=== PATIENT | female | born 1975 | race Caucasian/White ===

== ENCOUNTER 2018-03-09 18:07 | Emergency (ER) | payer OTHER ==
[2018-03-09] MEDS: ACETAMINOPHEN 325 MG TAB PO (18:36)
[2018-03-09 19:37] LABS: APPEARANCE, URINE CLEAR (CLEAR); BACTERIA, URINE AUTO NEGATIVE (NEGATIVE); BILIRUBIN, URINE AUTO NEGATIVE (NEGATIVE); BLOOD, URINE BLOOD 1+ (NEGATIVE); COLOR, URINE YELLOW (YELLOW); GLUCOSE, URINE (UA) AUTO NEGATIVE (NEGATIVE); KETONE, URINE AUTO NEGATIVE (NEGATIVE); LEUKOCYTE ESTERASE, URINE AUTO NEGATIVE (NEGATIVE); MUCUS, URINE SMALL (NEGATIVE); NITRITE, URINE AUTO NEGATIVE (NEGATIVE); PROTEIN, URINE AUTO NEGATIVE (NEGATIVE); RBC, URINE AUTO 8 /HPF (0-3); SPECIFIC GRAVITY URINE AUTO 1.017 (1.002-1.035); SQUAMOUS EPITHELIAL CELL UR AU 1 /HPF (0-6); WBC, URINE AUTO 1 /HPF (0-3)
== END 2018-03-09 19:46 | disposition home or self-care (01) ==
LOC: M ED 18:07
DX: S20.219A Contusion of unspecified front wall of thorax, initial encounter (principal); S39.012A Strain of muscle, fascia and tendon of lower back, initial encounter; W10.9XXA Fall (on) (from) unspecified stairs and steps, initial encounter; K21.9 Gastro-esophageal reflux disease without esophagitis; Z79.899 Other long term (current) drug therapy
CPT/HCPCS: 71101

== ENCOUNTER → 2018-03-09 | Outpatient (REF) | payer OTHER ==
[2018-03-09 11:49] LABS: ESTIMATED AVERAGE GLUCOSE 114 MG/DL (60-110); HEMOGLOBIN A1c 5.6 %
[2018-03-09 12:32] LABS: CHOLESTEROL LEVEL 283 MG/DL (<200); CHOLESTEROL RISK RATIO 6.738 (<5); HDL CHOLESTEROL 42 MG/DL (>40); LDL CHOLESTEROL 187 MG/DL (<100); NON-HDL-C 241 MG/DL; TOTAL 25(OH) VITAMIN D 18.5 NG/ML (30.0-100.0); TRIGLYCERIDES LEVEL 269 MG/DL (<150)
== END ==
LOC: M SFHCPLAZ 08:40
DX: Z13.1 Encounter for screening for diabetes mellitus (principal); E78.2 Mixed hyperlipidemia; E55.9 Vitamin D deficiency, unspecified
CPT/HCPCS: 83036

== ENCOUNTER → 2018-04-28 | Outpatient (CLI) | payer OTHER ==
[~2018-04-28] MED LIST: CVS20TAB PO; IBUP600T
--- NOTE | 2018-04-29 02:15 | REP ---
Clinical: Acute right wrist pain. Technique: AP, lateral, bilateral oblique views of the right wrist. Comparison: None. Findings: Evidence of prior orthopedic fixation involving the distal radial metadiaphysis. The carpal bones and surrounding adjacent osseous structures as well as a surrounding soft tissues are otherwise normal. Impression: Old trauma and fixation of the distal radius. Otherwise age appropriate normal-appearing right wrist series. Electronically Signed by Bob Lynn MD 04/29/2018 02:06 A
== END ==
LOC: M SMT 09:21
PROVIDERS: ATTEND Physician Assistant Medical
DX: M25.531 Pain in right wrist (principal); Z87.81 Personal history of (healed) traumatic fracture

== ENCOUNTER 2018-06-25 06:06 | Emergency (ER) | payer OTHER ==
[~2018-06-25] VITALS: Ht 149.9 cm; Wt 68.6 kg
[2018-06-25 06:06] VITALS: BP 128/75
--- NOTE | 2018-06-25 09:10 | REP ---
LEFT WRIST COMPLETE: 06/25/2018. Clinical history: Trauma. Findings: No prior studies. The four views show distal radius and ulna, carpal bones and joint spaces all intact. The metacarpals and their articulations with the wrist were unremarkable. The MCP joints were visible and grossly intact. Those portions of phalanges included were unremarkable. No avulsion, foreign body or other acute finding. Impression: 1. Negative left wrist series for fracture or other acute bony finding. Electronically Signed by Alex Tripp MD 06/25/2018 09:34 A
== END 2018-06-25 06:55 | disposition home or self-care (01) ==
LOC: M ED 06:06
DX: S63.502A Unspecified sprain of left wrist, initial encounter (principal); W19.XXXA Unspecified fall, initial encounter; Y92.099 Unspecified place in other non-institutional residence as the place of occurrence of the external cause; Y93.89 Activity, other specified; Y99.9 Unspecified external cause status; Z72.0 Tobacco use; K21.9 Gastro-esophageal reflux disease without esophagitis; Z79.899 Other long term (current) drug therapy

== ENCOUNTER 2018-09-05 11:11 | Outpatient (RCR) | payer OTHER ==
[~2018-09-05 11:11] MED LIST changes: -CVS20TAB PO; +OMEP20TA9 PO
== END 2018-09-06 ==
LOC: M PT 11:11
PROVIDERS: ATTEND Family Medicine
DX: R29.898 Other symptoms and signs involving the musculoskeletal system (principal)

== ENCOUNTER 2018-10-04 09:59 | Outpatient (RCR) | payer OTHER | END 2018-10-07 | LOC: M PT 09:59 | PROVIDERS: ATTEND Family Medicine | DX: R29.898 Other symptoms and signs involving the musculoskeletal system (principal) ==

== ENCOUNTER → 2019-04-03 | Outpatient (REF) | payer OTHER ==
[2019-04-03 11:46] LABS: BASO % 0.5 % (0.0-1.0); EOS # 0.2 10^3/uL (0.0-0.5); EOS % 2.4 % (0.0-3.0); HEMATOCRIT 46.1 % (36.0-47.0); HEMOGLOBIN 14.9 g/dl (12.0-15.5); LYMPH # 2.2 10^3/uL (1.5-5.0); LYMPH % 32.7 % (24.0-44.0); MEAN CORPUSCULAR HEMOGLOBIN 28.3 pg (27.0-33.0); MEAN CORPUSCULAR HGB CONC 32.3 g/dl (32.0-36.5); MEAN CORPUSCULAR VOLUME 87.5 fl (80.0-96.0); MONO # 0.6 10^3/uL (0.0-0.8); MONO % 9.5 % (0.0-5.0); NEUTROPHILS # 3.6 10^3/uL (1.5-8.5); NEUTROPHILS % 54.6 % (36.0-66.0); PLATELET COUNT, AUTOMATED 252 10^3/uL (150-450); RED BLOOD COUNT 5.27 10^6/uL (4.00-5.40); WHITE BLOOD COUNT 6.6 10^3/uL (4.0-10.0)
[2019-04-03 12:02] LABS: ALBUMIN 3.8 GM/DL (3.2-5.2); ALT/SGPT 74 U/L (12-78); BILIRUBIN,TOTAL 0.4 MG/DL (0.2-1.0); BLOOD UREA NITROGEN 9 MG/DL (7-18); CALCIUM LEVEL 9.3 MG/DL (8.5-10.1); CARBON DIOXIDE LEVEL 32 MEQ/L (21-32); CHLORIDE LEVEL 103 MEQ/L (98-107); CHOLESTEROL LEVEL 308 MG/DL (<200); CREATININE FOR GFR 0.84 MG/DL (0.55-1.30); FREE T4 0.82 NG/DL (0.76-1.46); GLOMERULAR FILTRATION RATE > 60.0 (>58); GLUCOSE, FASTING 91 MG/DL (70-100); HDL CHOLESTEROL 40 MG/DL (>40); LDL CHOLESTEROL 226 MG/DL (<100); NON-HDL-C 268 MG/DL; SODIUM LEVEL 140 MEQ/L (136-145); TOTAL 25(OH) VITAMIN D 56.4 NG/ML (30.0-100.0); TOTAL PROTEIN 7.6 GM/DL (6.4-8.2); TRIGLYCERIDES LEVEL 208 MG/DL (<150)
[2019-04-03 12:27] LABS: HEMOGLOBIN A1c 5.9 %
== END ==
LOC: M SFHCPLAZ 08:07
PROVIDERS: ATTEND Nurse Practitioner Family
DX: E78.2 Mixed hyperlipidemia (principal); R73.01 Impaired fasting glucose; E55.9 Vitamin D deficiency, unspecified

== ENCOUNTER → 2019-08-29 | Outpatient (REF) | payer OTHER ==
[2019-08-29 17:54] LABS: APPEARANCE, URINE HAZY (CLEAR); BACTERIA, URINE AUTO NEGATIVE (NEGATIVE); BILIRUBIN, URINE AUTO NEGATIVE (NEGATIVE); BLOOD, URINE BLOOD NEGATIVE (NEGATIVE); CALCIUM OXALATE CRYSTALS SMALL; COLOR, URINE YELLOW (YELLOW); GLUCOSE, URINE (UA) AUTO NEGATIVE (NEGATIVE); KETONE, URINE AUTO NEGATIVE (NEGATIVE); LEUKOCYTE ESTERASE, URINE AUTO NEGATIVE (NEGATIVE); MUCUS, URINE SMALL (NEGATIVE); NITRITE, URINE AUTO NEGATIVE (NEGATIVE); PROTEIN, URINE AUTO NEGATIVE (NEGATIVE); RBC, URINE AUTO 2 /HPF (0-3); SPECIFIC GRAVITY URINE AUTO 1.023 (1.002-1.035); SQUAMOUS EPITHELIAL CELL UR AU 6 /HPF (0-6); UROBILINOGEN, URINE AUTO 0.2 mg/dL (0.0-2.0); WBC, URINE AUTO 1 /HPF (0-3)
== END ==
LOC: M SFHCPLAZ 16:38
PROVIDERS: ATTEND Internal Medicine
DX: R10.9 Unspecified abdominal pain (principal)

== ENCOUNTER → 2019-09-01 | Outpatient (CLI) | payer OTHER ==
--- NOTE | 2019-09-01 11:23 | REP ---
REASON: Right upper quadrant pain. COMPARISON: None. Multiple ultrasonographic images of the liver show the hepatic parenchymal echopattern to be within normal limits. There is no intrahepatic or extrahepatic ductal dilatation. The common bile duct measures 4 mm. Multiple ultrasonographic images of the gallbladder show a slightly thickened gallbladder wall measuring between 2 and 3 mm, but without pericholecystic edema. Multiple mobile echogenic foci are seen within the gallbladder lumen which cast acoustic shadows. The technologist has indicated on the worksheet that there is a sonographic Brown sign. The imaged portion of the pancreas and right kidney are unremarkable. There is no free fluid in the abdomen. IMPRESSION: There is cholelithiasis and a mildly thickened gallbladder wall. Electronically Signed by Gio Abbott DO 09/01/2019 11:38 A
== END ==
LOC: M RAD 07:47
PROVIDERS: ATTEND Internal Medicine
DX: R10.11 Right upper quadrant pain (principal)

== ENCOUNTER 2019-09-10 07:58 | Observation (INO) | payer OTHER ==
[~2019-09-10] VITALS: Ht 149.9 cm; Wt 75.0 kg
[2019-09-10] MEDS ORDERED: VITA50005 PO (08:09)
[2019-09-10] MEDS ORDERED: ALLE180T42 PO (08:09)
[2019-09-10] MEDS ORDERED: ATOR1TAB21 PO (08:09)
[2019-09-10] MEDS ORDERED: NS 1,000 ML IV ONE (08:30)
[2019-09-10] MEDS ORDERED: MORPHINE 4 MG/ML 1ML VIAL/SYRINGE (J2270) IV ONE (08:45)
[2019-09-10] MEDS ORDERED: ONDANSETRON 4MG/2ML VIAL IV ONE (08:45)
[2019-09-10 08:50] LABS: BASO % 0.4 % (0.0-1.0); EOS % 0.3 % (0.0-3.0); HEMATOCRIT 44.5 % (36.0-47.0); HEMOGLOBIN 14.5 g/dl (12.0-15.5); LYMPH # 1.4 10^3/uL (1.5-5.0); LYMPH % 12.4 % (24.0-44.0); MEAN CORPUSCULAR HEMOGLOBIN 28.4 pg (27.0-33.0); MEAN CORPUSCULAR HGB CONC 32.6 g/dl (32.0-36.5); MEAN CORPUSCULAR VOLUME 87.1 fl (80.0-96.0); MONO # 0.5 10^3/uL (0.0-0.8); MONO % 4.1 % (0.0-5.0); NEUTROPHILS # 9.2 10^3/uL (1.5-8.5); NEUTROPHILS % 82.4 % (36.0-66.0); PLATELET COUNT, AUTOMATED 278 10^3/uL (150-450); RED BLOOD COUNT 5.11 10^6/uL (4.00-5.40); WHITE BLOOD COUNT 11.2 10^3/uL (4.0-10.0)
[2019-09-10 09:10] LABS: ALBUMIN 4.1 GM/DL (3.2-5.2); ALT/SGPT 55 U/L (12-78); BILIRUBIN,DIRECT 0.1 MG/DL (0.0-0.2); BILIRUBIN,TOTAL 0.3 MG/DL (0.2-1.0); BLOOD UREA NITROGEN 8 MG/DL (7-18); CALCIUM LEVEL 9.8 MG/DL (8.5-10.1); CARBON DIOXIDE LEVEL 29 MEQ/L (21-32); CHLORIDE LEVEL 106 MEQ/L (98-107); GLOMERULAR FILTRATION RATE > 60.0 (>58); GLUCOSE, FASTING 108 MG/DL (70-100); LIPASE 84 U/L (73-393); POTASSIUM SERUM 3.9 MEQ/L (3.5-5.1); SODIUM LEVEL 143 MEQ/L (136-145); TOTAL PROTEIN 7.8 GM/DL (6.4-8.2)
[2019-09-10 09:12] LABS: APPEARANCE, URINE HAZY (CLEAR); BACTERIA, URINE AUTO NEGATIVE (NEGATIVE); BILIRUBIN, URINE AUTO NEGATIVE (NEGATIVE); BLOOD, URINE BLOOD 1+ (NEGATIVE); COLOR, URINE YELLOW (YELLOW); GLUCOSE, URINE (UA) AUTO NEGATIVE (NEGATIVE); KETONE, URINE AUTO NEGATIVE (NEGATIVE); LEUKOCYTE ESTERASE, URINE AUTO NEGATIVE (NEGATIVE); MUCUS, URINE SMALL (NEGATIVE); NITRITE, URINE AUTO NEGATIVE (NEGATIVE); PROTEIN, URINE AUTO NEGATIVE (NEGATIVE); RBC, URINE AUTO 7 /HPF (0-3); SPECIFIC GRAVITY URINE AUTO 1.025 (1.002-1.035); SQUAMOUS EPITHELIAL CELL UR AU 6 /HPF (0-6); UROBILINOGEN, URINE AUTO 0.2 mg/dL (0.0-2.0); WBC, URINE AUTO 1 /HPF (0-3)
--- NOTE | 2019-09-10 09:27 | REP ---
Clinical: Right upper quadrant pain. Technique: Real time lyon scale ultrasound examination using curved array transducer. Findings: Gallbladder demonstrates mild wall thickening to 4.6 mm along with multiple gallstones and sonographic Brown's sign suggesting early acute cholecystitis. Along the fundus there is a 2.1 x 1.7 x 1.4 cm echogenic area without shadowing suggesting tumefactive sludge and less likely representing mass. No biliary ductal dilatation is appreciated and the common bile duct measures 3.6 mm diameter. Liver and pancreas are normal in contour, size, echogenicity without focal hepatic or pancreatic lesion identified. The right kidney is normal in reniform shape without hydronephrosis and measures 10.5 x 4.3 x 4.9 cm. No ascites. Impression: 1. Gallbladder findings as described above suggest acute cholecystitis and require clinical correlation. Focal area of soft tissue density at the gallbladder fundus is also identified likely represents tumefactive sludge, but mass lesion cannot definitively be excluded. Electronically Signed by Bob Lynn MD 09/10/2019 09:18 A
[2019-09-10] MEDS ORDERED: ONDANSETRON 4MG/2ML VIAL IV PRN (11:30)
[2019-09-10] MEDS ORDERED: NORCO, ANEXSIA 5/325MG TABLET (HYDROcodone/ACETAMINOPHEN) PO PRN ×2 (11:30)
[2019-09-10] MEDS ORDERED: MORPHINE 2 MG/ML 1ML VIAL (J2270) IV PRN ×2 (11:30)
[2019-09-10] MEDS: PANTOPRAZOLE 40MG VIAL (C9113 PER 1) IV SCH (12:52)
[2019-09-10] MEDS: LR 1,000 ML IV SCH ×2 (12:52→20:12)
[2019-09-10] MEDS: KETOROLAC 30 MG/ML 1ML VIAL IV SCH ×2 (12:53→17:55)
[2019-09-10 13:40] VITALS: BP 107/63
[2019-09-10] MEDS: PIPERACILLIN/TAZOBACTAM SOD 3.375 GM in D5W MINI-BAG PLUS 50 ML IV SCH ×3 (14:15→23:54)
[2019-09-10] MEDS: ATORVASTATIN 20 MG TAB PO SCH (15:29)
[2019-09-10 18:00] VITALS: BP 111/74
[2019-09-10] MEDS: OMEPRAZOLE 20 MG CAP PO SCH (20:12)
[2019-09-10 22:00] VITALS: BP 113/73
[2019-09-11] VITALS (7 sets, daily range): BP systolic 114–148; BP diastolic 74–91
[2019-09-11 05:51] LABS: HEMATOCRIT 36.8 % (36.0-47.0); MEAN CORPUSCULAR HEMOGLOBIN 28.8 pg (27.0-33.0); MEAN CORPUSCULAR HGB CONC 32.6 g/dl (32.0-36.5); MEAN CORPUSCULAR VOLUME 88.5 fl (80.0-96.0); PLATELET COUNT, AUTOMATED 214 10^3/uL (150-450); RED BLOOD COUNT 4.16 10^6/uL (4.00-5.40); WHITE BLOOD COUNT 7.7 10^3/uL (4.0-10.0)
[2019-09-11] MEDS: KETOROLAC 30 MG/ML 1ML VIAL IV SCH ×6 (06:00→23:27)
[2019-09-11 06:18] LABS: ALT/SGPT 34 U/L (12-78); BILIRUBIN,TOTAL 0.5 MG/DL (0.2-1.0); BLOOD UREA NITROGEN 9 MG/DL (7-18); CALCIUM LEVEL 8.8 MG/DL (8.5-10.1); CARBON DIOXIDE LEVEL 26 MEQ/L (21-32); CHLORIDE LEVEL 111 MEQ/L (98-107); CREATININE FOR GFR 0.71 MG/DL (0.55-1.30); GLOMERULAR FILTRATION RATE > 60.0 (>58); GLUCOSE, FASTING 90 MG/DL (70-100); POTASSIUM SERUM 3.7 MEQ/L (3.5-5.1); SODIUM LEVEL 143 MEQ/L (136-145); TOTAL PROTEIN 6.1 GM/DL (6.4-8.2)
[2019-09-11] MEDS: PIPERACILLIN/TAZOBACTAM SOD 3.375 GM in D5W MINI-BAG PLUS 50 ML IV SCH ×3 (06:30→21:17)
[2019-09-11] MEDS: LR 1,000 ML IV SCH ×3 (06:31→21:18)
[2019-09-11] MEDS: PANTOPRAZOLE 40MG VIAL (C9113 PER 1) IV SCH (09:25)
[2019-09-11] MEDS: OMEPRAZOLE 20 MG CAP PO SCH ×2 (09:25→21:21)
[2019-09-11] MEDS: ATORVASTATIN 20 MG TAB PO SCH (09:25)
--- NOTE | 2019-09-11 10:20 | HPE ---
DATE OF ADMISSION: 09/10/2019 BRIEF HISTORY OF PRESENT ILLNESS: The patient is a 44-year-old female who has had ongoing problems with symptomatic gallstones for over a month now, had a scheduled office appointment about a week and half ago but unfortunately this was cancelled in Dr. Bright's office because of an emergency operation that at that time rescheduled her office visit for this coming week or two. In any case, last night she had peanut butter in the middle the night and developed acute onset of abdominal pain in the epigastric area radiating to the right upper quadrant. After about an hour or so after eating this peanut butter and jelly sandwich she has presented with an elevated white count of 11.2. Liver function tests (LFTs) were within normal limits. Did not have any acholic stools. No bilirubinuria. She was in to see Dr. Mcdowell about 2 weeks ago after being seen for this abdominal pain and was started on some Keflex for a week's time. She is status post appendectomy, hysterectomy, history of kidney stones, history of chronic low back pain, history of carpal tunnel syndrome, history of nicotine dependence, hyperlipidemia, history of colonic polyps, history of (C) section times three, history of right wrist and arm surgery. Physical exam reveals a 44-year-old female who looks stated age. HEENT is unremarkable. Neck: Supple without with without adenopathy. Lungs are clear to auscultation without crackles, wheezes or rhonchi. Heart is regular without murmur. Abdomen is soft, nontender, nondistended except in the right upper quadrant where she has some guarding and rebound in the right upper quadrant and is Brown's positive. She has a slightly thickened gallbladder wall with gallstones on imaging. IMPRESSION/PLAN: The patient has evidence of cholecystitis. At this time, clinically we will make her nothing by mouth, intravenous (IV) fluids, IV antibiotics, and we will see how she does over the ensuing 12-24 hours. We will see how she is doing in the morning. If she is doing well, options are to be either progress her diet and discharge to home with an outpatient laparoscopic cholecystectomy or to proceed with operative intervention while she is in hospital. We will discuss this with her tomorrow depending on her course over the day.
[2019-09-11] MEDS ORDERED: LIDOCAINE 1% SDV 30ML VIAL As Ordered ONE (17:31)
[2019-09-11] MEDS ORDERED: BUPIVACAINE HCL 0.25% 30ML VIAL As Ordered ONE (17:31)
--- NOTE | 2019-09-11 17:32 | IPNPDOC ---
Text Note Date of Service The patient was seen on 09/11/19. NOTE Patient admitted yesterday for severe RUQ pain from acute cholecystitis, had m mejia some improvement with IV antibiotics. She has been having symptoms for the past 2 weeks or so intermittently and was given keflex as an outpatient. She's afebrile On exam, looks mildly uncomfortable Lungs are clear to auscultation bilaterally without wheezing Regular heart rate and rhythm without murmurs round abdomen, minimally distended, tender over right upper quadrant area with mild guarding, (+) murphys sign Labs reviewed initial wbc of 11.2 down to 7.7 today LFTs normal Impression: acute cholecystitis Patient counseled for robotic assisted laparoscopic cholecystectomy. I reviewed with her the risks and benefits of the procedure including risks of bile duct injury, bile leakage, injury to nearby bowels, blood vessels and risks of general anesthesia and possibility of converting to open surgery. consent obtained. VS,Devaughnbone, I+O VS, Fishbone, I+O Laboratory Tests 09/11/19 05:27 Vital Signs Date Time Temp Pulse Resp B/P (MAP) Pulse Ox O2 Delivery O2 Flow Rate FiO2 09/11/19 14:00 97.0 67 17 128/81 (97) 95 09/10/19 22:00 Room Air I&O- Last 24 Hours up to 6 AM 09/11/19 06:00 Intake Total 1850 ml Balance 1850 ml CAYDEN MCLEOD MD September 11, 2019 17:32
[2019-09-11] MEDS ORDERED: ZOSYN 3.375GM VIAL (J2543) As Ordered ONE (17:43)
[2019-09-11] MEDS ORDERED: propofoL 200 MG/20 ML VIAL As Ordered ONE (18:23)
[2019-09-11] MEDS ORDERED: dexameTHASONE 4 MG/ML 1ML VIAL (J1100 PER 1MG) As Ordered ONE (18:23)
[2019-09-11] MEDS ORDERED: MIDAZOLAM INJ 2MG/2ML VIAL (J2250 PER 1MG) As Ordered ONE (18:23)
[2019-09-11] MEDS ORDERED: LIDOCAINE 2% 100MG/5ML SDV (FOR ANES.) As Ordered ONE (18:23)
[2019-09-11] MEDS ORDERED: ROCURONIUM BROMIDE 50 MG/5 ML VIAL As Ordered ONE (18:23)
[2019-09-11] MEDS ORDERED: ACETAMINOPHEN 1000MG 100ML IV BTL (OFIRMEV) (J0131 PER 10MG) As Ordered ONE (18:23)
[2019-09-11] MEDS ORDERED: fentaNYL 250 MCG/5 ML INJECTION (J3010) As Ordered ONE (18:23)
[2019-09-11] MEDS ORDERED: KETOROLAC 60 MG/2 ML VIAL As Ordered ONE (18:23)
[2019-09-11] MEDS ORDERED: ONDANSETRON 4MG/2ML VIAL As Ordered ONE (18:23)
[2019-09-11] MEDS ORDERED: SUGAMMADEX SODIUM 500 MG/5 ML VIAL (BRIDION) As Ordered ONE (18:33)
[2019-09-11] MEDS: hydrALAZINE 20MG/ML 1ML VIAL (J0360 PER 20MG) IV SCH ×4 (19:55→20:30)
[2019-09-11] MEDS ORDERED: hydrALAZINE 20MG/ML 1ML VIAL (J0360 PER 20MG) As Ordered ONE (19:57)
[2019-09-11] MEDS ORDERED: LR 1,000 ML IV SCH (20:15)
[2019-09-11] MEDS: LABETALOL 100MG/20ML VIAL IV SCH ×5 (20:15→20:35)
[2019-09-11] MEDS ORDERED: oxyCODONE 5MG TAB PO PRN (20:15)
[2019-09-11] MEDS ORDERED: ONDANSETRON 4MG/2ML VIAL IV PRN (20:15)
[2019-09-11] MEDS ORDERED: fentaNYL 100 MCG/2 ML INJECTION (J3010) IV PRN (20:15)
[2019-09-11] MEDS ORDERED: oxyCODONE 5MG TAB As Ordered ONE (20:38)
[2019-09-12] VITALS: BP 128/77
[2019-09-12] MEDS: PIPERACILLIN/TAZOBACTAM SOD 3.375 GM in D5W MINI-BAG PLUS 50 ML IV SCH ×3 (00:59→12:48)
[2019-09-12 01:00] VITALS: BP 135/73
[2019-09-12 02:00] VITALS: BP 115/73
[2019-09-12] MEDS: LR 1,000 ML IV SCH (03:18)
[2019-09-12] MEDS: KETOROLAC 30 MG/ML 1ML VIAL IV SCH ×2 (05:46→12:48)
[2019-09-12 06:00] VITALS: BP 136/87
[2019-09-12 06:26] LABS: HEMATOCRIT 40.9 % (36.0-47.0); HEMOGLOBIN 13.6 g/dl (12.0-15.5); MEAN CORPUSCULAR HEMOGLOBIN 28.6 pg (27.0-33.0); MEAN CORPUSCULAR HGB CONC 33.3 g/dl (32.0-36.5); MEAN CORPUSCULAR VOLUME 85.9 fl (80.0-96.0); PLATELET COUNT, AUTOMATED 262 10^3/uL (150-450); RED BLOOD COUNT 4.76 10^6/uL (4.00-5.40); WHITE BLOOD COUNT 13.3 10^3/uL (4.0-10.0)
[2019-09-12 06:56] LABS: ALBUMIN 3.4 GM/DL (3.2-5.2); ALT/SGPT 40 U/L (12-78); BILIRUBIN,TOTAL 0.4 MG/DL (0.2-1.0); BLOOD UREA NITROGEN 7 MG/DL (7-18); CALCIUM LEVEL 9.2 MG/DL (8.5-10.1); CARBON DIOXIDE LEVEL 26 MEQ/L (21-32); CHLORIDE LEVEL 109 MEQ/L (98-107); CREATININE FOR GFR 0.74 MG/DL (0.55-1.30); GLOMERULAR FILTRATION RATE > 60.0 (>58); GLUCOSE, FASTING 110 MG/DL (70-100); POTASSIUM SERUM 3.9 MEQ/L (3.5-5.1); SODIUM LEVEL 143 MEQ/L (136-145)
[2019-09-12] MEDS: OMEPRAZOLE 20 MG CAP PO SCH (09:18)
[2019-09-12] MEDS: ATORVASTATIN 20 MG TAB PO SCH (09:18)
[2019-09-12 10:00] VITALS: BP 149/85
[2019-09-12 14:00] VITALS: BP 118/75
[2019-09-12] MEDS ORDERED: HYDR-3715 PO (14:33)
--- NOTE | 2019-09-20 08:48 | ROOPDOC ---
[facility] Report Of Operation Report of Operation DATE OF PROCEDURE: 09/20/19 PREPROCEDURE DIAGNOSES: Acute cholecystitis. POSTPROCEDURE DIAGNOSES: Acute cholecystitis. PROCEDURE: Robotic-assisted laparoscopic cholecystectomy with ICG/firefly for cystic duct identification. SURGEON: Cayden Bright MD MANAGER ALLIANCE: ANESTHESIA: Gen. anesthesia. ESTIMATED BLOOD LOSS: Approximately 20 mL. COMPLICATIONS: None. REMARKS: 44-year-old female admitted with severe right upper quadrant pain and leukocytosis of 11.2 and evidence for acute cholecystitis on ultrasound. PROCEDURE NOTE: Distended, chronically thick-walled with acute gallbladder wall edema, initial absence of cystic duct illumination on ICG/firefly with eventual visualization of the cystic duct on lifting up the stones at the gallbladder neck consistent with cystic duct obstruction/acute cholecystitis. DESCRIPTION OF PROCEDURE: .Patient is receiving scheduled doses of Zosyn 3.375 gm IV preoperatively for acute cholecystitis. She was brought to the operating room, laid supine on the table, compression boots placed for DVT prophylaxis. General endotracheal anesthesia started. His abdomen then prepped and draped in usual sterile fashion. Surgical timeout was performed prior to starting surgery. Entry to the abdomen started over to the left side of the umbilicus via a Veress needle insertion. Intra-abdominal placement confirmed with saline drop technique. CO2 insufflation started to pressure 15 mmHg. Using the same incision an 8 mm robotic trocar was placed under direct vision of a 5 mm laparoscope. The area underneath the insertion point was inspected for injury and none was found. Patient was then positioned in a reverse Trendelenburg slightly tilted right side up to allow for better better visualization of the gallbladder. The robotic port sites were placed in its usual position, slight oblique orientation from the left upper quadrant area going towards the right abdomen roughly about 10-12 cm apart. The da Ryan robot tower was then positioned in place and the trochars docked onto the robotic arms. I used a prograspe, forced bipolar grasper connected to bipolar cautery, 8 mm 30 laparoscope, hook cautery connected to monopolar cautery and exchanged this for scissors and clip tire changer aircraft later on. Operative findings: She has slightly enlarged, moderately fatty-replaced liver which is a bit stiff. Her gallbladder is thick with acute gallbladder wall edema consistent with cholecystitis. Initially with ICG there was no gallbladder transillumination of the dye consistent with cholecystitis with manipulation of the gallbladder neck eventually the gallbladder neck and cystic duct was able to fluoresce. There is small amount of serous fluid surrounding the gallbladder. The wall itself does not have any acutely ischemic portions. I initially decompressed gallbladder with a aspirating needle connected to a 60 mm syringe to be able to manipulate the gallbladder better. This yielded a black thick bile. Once the gallbladder was partially decompressed, the fundus of the gallbladder was grasped and the gallbladder was elevated superiorly exposing the neck of the gallbladder. The peritoneum overlying the area was opened up and dissected free both anteriorly and posteriorly to help with retraction of the gallbladder. The hepatocystic triangle was approached and dissected using the hook cautery. I flipped the near infrared imaging of the firefly on-and-off to identify the course of the cystic duct during the dissection of the hepatocystic triangle. The adipose tissue at the cystic plate was thickened. The cystic duct was identified coming off from the neck gallbladder this was circumferentially dissected. The cystic artery was identified in its usual position medially behind a small lymph node of [place]. This was similarly circumferentially dissected off surrounding adipose tissue. We continued posterior dissection p roximally at the next gallbladder until a critical view of safety was achieved whereby only the previously identified duct and artery coursing through the neck the gallbladder. Photodocumentation. At this point, I placed 2 clips at the cystic artery and this was divided in between the clips. 3 clips were placed at the cystic duct with 2 clips at the cystic duct side and this was likewise divided. We then carefully dissected the remaining posterior wall of the gallbladder off the liver bed. Minimal oozing at the liver bed is noted and is easily controlled with Bovie cautery. There was no bile leakage noted. Her gallbladder was removed intact. Firefly was used to visualize for any possible bile leakage and none was found. The Endo Catch bag was placed over the patient's right upper quadrant port site and with dilation of the tract we were able to remove the gallbladder. Using a Donn Pablo device the fascial defect of the port was closed with a 0 Vicryl stitch. The abdomen was then deflated, all ports were removed. Skin incisions were closed with 4-0 Monocryl in subcutaneous fashion covered with Dermabond. Patient tolerated the procedure well. She was promptly awakened, extubated and brought to recovery room in stable condition. CAYDEN BRIGHT MD September 20, 2019 08:48
--- NOTE | 2019-09-20 08:54 | DS.PDOC ---
Discharge Summary General Date of Admission September 10, 2019 at 07:59 Date of Discharge 09/12/2019 Attending Physician: CAYDEN MCLEOD MD Discharge Summary PROCEDURES PERFORMED DURING STAY: Robotic-assisted laparoscopic cholecystectomy. ADMITTING DIAGNOSES: 1. Acute cholecystitis. DISCHARGE DIAGNOSES: 1. Acute cholecystitis. COMPLICATIONS/CHIEF COMPLAINT: Acute Cholecystitis Due To Biliary Calculus. HISTORY OF PRESENT ILLNESS: Patient admitted through the emergency room where she presented with worsening of right upper quadrant pain which has been ongoing for about a month now was found to have mildly elevated white count and evidence for acute cholecystitis on imaging.. HOSPITAL COURSE: Patient was initially seen by Dr. Cormier and later on turned over to care to me. She was supposed to see me in the clinic for her gall stones. She was scheduled for laparoscopic cholecystectomy. She underwent robotic-assisted laparoscopic cholecystectomy at Hospital day #2. She tolerated the procedure well. Intraoperative findings are consistent with acute cholecystitis at this was performed laparoscopically. She was placed on clear liquids and later on advanced to regular diet which he tolerated. She reports improvement of her pain and discomfort. She had some mild decussate ptosis on postop day 1 with her LFTs remained normal. She was subsequently discharged home on as needed hydrocodone for pain.. DISCHARGE MEDICATIONS: Please see below. ALLERGIES: Please see below. PHYSICAL EXAMINATION ON DISCHARGE: VITAL SIGNS: Please see below. GENERAL: Comfortable HEENT: [place] palpebral conjunctiva, anicteric sclerae NECK: Short, supple, no jugular venous distention CARDIOVASCULAR EXAMINATION: Regular heart rate and rhythm without murmurs RESPIRATORY EXAMINATION: Clear breath sounds auscultation bilaterally without wheezing ABDOMINAL EXAMINATION: Mildly obese, rounded, soft. For port sites without much ecchymosis, subcutaneous hematoma or seroma. Minimally tender around the port sites EXTREMITIES: No significant extremity edema SKIN: No jaundice NEUROLOGICAL EXAMINATION: Awake, alert, oriented LABORATORY DATA: Please see below. IMAGING: A gallbladder ultrasound PROGNOSIS: Good ACTIVITY: Light activity 2 weeks. DIET: As tolerated DISCHARGE PLAN: Patient's discharge home on as needed [place] for pain control and [id number] NSAIDs. No antibiotics are needed. DISPOSITION: 01 Home, Self-Care. DISCHARGE INSTRUCTIONS: 1. Follow-up with me as originally scheduled next week. ITEMS TO FOLLOWUP ON ON OUTPATIENT: 1. Pathology results. DISCHARGE CONDITION: Stable. TIME SPENT ON DISCHARGE: Greater than 30 minutes. Discharge Medications Scheduled Atorvastatin Calcium (Atorvastatin Calcium) 20 Mg Tablet, 20 MG PO DAILY, (Reported) Ergocalciferol (Vitamin D2) (Vitamin D2) 50,000 Units Cap, 50,000 UNITS PO QWEEK, (Reported) SUNDAYS Fexofenadine HCl (Allergy Relief) 180 Mg Tablet, 180 MG PO DAILY, (Reported) Omeprazole (Omeprazole) 20 Mg Tab, 20 MG PO BID, (Reported) Scheduled PRN Hydrocodone/Acetaminophen (Hydrocodone-Acetamin 5-325 mg) 1 Each Tablet, 1-2 TAB PO Q6H PRN for MILD/MODERATE PAIN (PS 1-7) Allergies Coded Allergies: No Known Allergies (Unverified , 09/10/19) CAYDEN MCLEOD MD September 20, 2019 08:54
== END 2019-09-12 18:45 | disposition home or self-care (01) ==
LOC: M ED 07:58 → M ED INP 07:59 → ENRESERV 13:25 → M MSPAV 13:40
PROVIDERS: ADMIT Surgery; ATTEND Surgery
DX: K80.13 Calculus of gallbladder with acute and chronic cholecystitis with obstruction (principal); M54.5 Low back pain; G89.29 Other chronic pain; E78.5 Hyperlipidemia, unspecified; F17.200 Nicotine dependence, unspecified, uncomplicated; J30.1 Allergic rhinitis due to pollen; Z79.899 Other long term (current) drug therapy; Z11.59 Encounter for screening for other viral diseases
CPT/HCPCS: 36415; 47562; 76705; 80048; 80053; 80076; 81001; 83690; 85025; 85027; 88304; 96361; 96365; 96366; 96375; 96376; 99284; C9113; J0131; J0360; J1100; J1885; J2250; J2270; J2405; J2543; J3010; U0002

== ENCOUNTER → 2019-09-21 | Outpatient (REF) | payer OTHER ==
[~2019-09-21] MED LIST changes: +ALLE180T42 PO; +ATOR1TAB21 PO; +HYDR-3715 PO; +VITA50005 PO
[2019-09-21 13:15] LABS: ALBUMIN 3.6 GM/DL (3.2-5.2); ALT/SGPT 41 U/L (12-78); BILIRUBIN,TOTAL 0.2 MG/DL (0.2-1.0); BLOOD UREA NITROGEN 9 MG/DL (7-18); C REACTIVE PROTEIN QUANTITATIV 0.92 MG/DL (0.00-0.30); CALCIUM LEVEL 9.1 MG/DL (8.5-10.1); CARBON DIOXIDE LEVEL 29 MEQ/L (21-32); CHLORIDE LEVEL 107 MEQ/L (98-107); CHOLESTEROL LEVEL 185 MG/DL (<200); CHOLESTEROL RISK RATIO 4.204 (<5); CPK CREATINE PHOSPHOKINASE 97 U/L (26-192); CREATININE FOR GFR 0.63 MG/DL (0.55-1.30); GLOMERULAR FILTRATION RATE > 60.0 (>58); GLUCOSE, FASTING 88 MG/DL (70-100); HDL CHOLESTEROL 44 MG/DL (>40); LDL CHOLESTEROL 110 MG/DL (<100); NON-HDL-C 141 MG/DL; POTASSIUM SERUM 3.8 MEQ/L (3.5-5.1); SODIUM LEVEL 142 MEQ/L (136-145); TRIGLYCERIDES LEVEL 154 MG/DL (<150)
[2019-09-21 20:14] LABS: BASO # 0.1 10^3/uL (0.0-0.2); EOS # 0.2 10^3/uL (0.0-0.5); EOS % 2.6 % (0.0-3.0); HEMATOCRIT 41.4 % (36.0-47.0); HEMOGLOBIN 13.6 g/dl (12.0-15.5); LYMPH # 2.9 10^3/uL (1.5-5.0); LYMPH % 31.7 % (24.0-44.0); MEAN CORPUSCULAR HEMOGLOBIN 29.5 pg (27.0-33.0); MEAN CORPUSCULAR HGB CONC 32.9 g/dl (32.0-36.5); MEAN CORPUSCULAR VOLUME 89.8 fl (80.0-96.0); MONO # 0.6 10^3/uL (0.0-0.8); MONO % 6.7 % (0.0-5.0); NEUTROPHILS # 5.3 10^3/uL (1.5-8.5); NEUTROPHILS % 57.8 % (36.0-66.0); PLATELET COUNT, AUTOMATED 283 10^3/uL (150-450); RED BLOOD COUNT 4.61 10^6/uL (4.00-5.40); WHITE BLOOD COUNT 9.2 10^3/uL (4.0-10.0)
== END ==
LOC: M SFHCPLAZ 11:34
PROVIDERS: ATTEND Family Medicine
DX: E78.2 Mixed hyperlipidemia (principal); R73.01 Impaired fasting glucose; R10.11 Right upper quadrant pain

== ENCOUNTER → 2019-09-22 | Outpatient (CLI) | payer OTHER ==
--- NOTE | 2019-09-22 11:42 | REP ---
RIGHT UPPER QUADRANT ULTRASOUND: Real-time sonographic evaluation of right upper quadrant performed. Patient has had cholecystectomy 09/12/2019. There is no intrahepatic or extrahepatic biliary dilatation, common bile duct measuring 6 mm. No superficial abdominal wall abnormality is seen at the site of pain between incision sites. Liver and pancreas are grossly unremarkable. Pancreas is not optimally seen due to overlying bowel gas. Right kidney demonstrates no hydronephrosis with normal size 11.5 cm in length. There is no ascites. IMPRESSION: Essentially negative right upper quadrant ultrasound, status post cholecystectomy. Electronically Signed by Eulalio Marley MD 09/22/2019 12:02 P
== END ==
LOC: M RAD 09:28
PROVIDERS: ATTEND Family Medicine
DX: R10.11 Right upper quadrant pain (principal); Z90.49 Acquired absence of other specified parts of digestive tract

== ENCOUNTER → 2019-11-06 | Outpatient (CLI) | payer OTHER ==
[~2019-11-06] MED LIST changes: +CETI5SOL3 PO; +MONT10TA4 PO
== END ==
LOC: M LABSMTC 09:44
PROVIDERS: ATTEND Anesthesiology
DX: Z01.818 Encounter for other preprocedural examination (principal); Z11.59 Encounter for screening for other viral diseases
CPT/HCPCS: C9803; U0002

== ENCOUNTER 2019-11-08 06:11 | Day surgery (SDC) | payer OTHER ==
[~2019-11-08] VITALS: Ht 149.9 cm; Wt 76.2 kg
[~2019-11-08 06:11] MED LIST changes: +NS 1,000 ML IV ONE
[2019-11-08] MEDS ORDERED: propofoL 200 MG/20 ML VIAL As Ordered ONE (07:05)
[2019-11-08] MEDS ORDERED: LIDOCAINE 2% 100MG/5ML SDV (FOR ANES.) As Ordered ONE (07:05)
--- NOTE | 2019-11-08 08:02 | ROOR ---
Patient Name: Daphnie Barakat Procedure Date: 11/08/2019 7:30 AM Date of : 1975 Age: 44 Room: [facility] Gender: Female Note Status: Finalized Procedure: Colonoscopy Indications: High risk colon cancer surveillance: Personal history of colonic polyps Providers: Juan Daniel Bright MD Referring MD: Jennifer HAHN Requesting Provider: Medicines: Monitored Anesthesia Care Complications: No immediate complications. Procedure: Pre-Anesthesia Assessment: - Prior to the procedure, a History and Physical was performed, and patient medications and allergies were reviewed. The patient is competent. The risks and benefits of the procedure and the sedation options and risks were discussed with the patient. All questions were answered and informed consent was obtained. Patient identification and proposed procedure were verified by the physician, the nurse and the anesthesiologist in the endoscopy suite. Mental Status Examination: alert and oriented. Airway Examination: normal oropharyngeal airway and neck mobility. Respiratory Examination: clear to auscultation. CV Examination: normal. Prophylactic Antibiotics: The patient does not require prophylactic antibiotics. Prior Anticoagulants: The patient has taken no previous anticoagulant or antiplatelet agents. ASA Grade Assessment: II - A patient with mild systemic disease. After reviewing the risks and benefits, the patient was deemed in satisfactory condition to undergo the procedure. The anesthesia plan was to use monitored anesthesia care (MAC). Immediately prior to administration of medications, the patient was re-assessed for adequacy to receive sedatives. The heart rate, respiratory rate, oxygen saturations, blood pressure, adequacy of pulmonary ventilation, and response to care were monitored throughout the procedure. The physical status of the patient was re-assessed after the procedure. The Colonoscope was introduced through the anus and advanced to the cecum, identified by appendiceal orifice and ileocecal valve. The colonoscopy was performed without difficulty. The patient tolerated the procedure well. The quality of the bowel preparation was good. Findings: Skin tags were found on perianal exam. A few small-mouthed diverticula were found in the sigmoid colon. Two flat polyps were found in the transverse colon. The polyps were diminutive in size. These polyps were removed with a cold biopsy forceps. Resection and retrieval were complete. For hemostasis, one hemostatic clip was successfully placed (MR conditional). There was no bleeding at the end of the procedure. No additional abnormalities were found on retroflexion. Impression: - Perianal skin tags found on perianal exam. - Diverticulosis in the sigmoid colon. - Two diminutive polyps in the transverse colon, removed with a cold biopsy forceps. Resected and retrieved. Clip (MR conditional) was placed. Recommendation: - Discharge patient to home (ambulatory). - Repeat colonoscopy in 10 years for surveillance based on pathology results. Juan Daniel Bright MD Juan Daniel Bright MD 11/08/2019 8:01:48 AM Electronically signed by Juan Daniel Bright MD Number of Addenda: 0 Note Initiated On: 11/08/2019 7:30 AM Estimated Blood Loss: Estimated blood loss was minimal.
[2019-11-08 08:30] VITALS: BP 132/77
== END 2019-11-08 09:20 | disposition home or self-care (01) ==
LOC: M OPP 06:11
PROVIDERS: ATTEND Surgery
DX: Z12.11 Encounter for screening for malignant neoplasm of colon (principal); Z86.010 Personal history of colon polyps; Z80.0 Family history of malignant neoplasm of digestive organs; D12.3 Benign neoplasm of transverse colon; K57.30 Diverticulosis of large intestine without perforation or abscess without bleeding; K80.00 Calculus of gallbladder with acute cholecystitis without obstruction; F17.210 Nicotine dependence, cigarettes, uncomplicated; Z79.899 Other long term (current) drug therapy

== ENCOUNTER 2019-11-27 15:56 | Emergency (ER) | payer OTHER ==
[~2019-11-27] VITALS: Ht 149.9 cm; Wt 77.4 kg
[~2019-11-27 15:56] MED LIST changes: -NS 1,000 ML IV ONE
[2019-11-27 17:18] LABS: BASO % 0.4 % (0.0-1.0); EOS # 0.1 10^3/uL (0.0-0.5); EOS % 1.4 % (0.0-3.0); HEMOGLOBIN 13.6 g/dl (12.0-15.5); LYMPH # 2.9 10^3/uL (1.5-5.0); LYMPH % 32.6 % (24.0-44.0); MEAN CORPUSCULAR HEMOGLOBIN 28.9 pg (27.0-33.0); MEAN CORPUSCULAR HGB CONC 32.4 g/dl (32.0-36.5); MEAN CORPUSCULAR VOLUME 89.4 fl (80.0-96.0); MONO # 0.6 10^3/uL (0.0-0.8); MONO % 6.1 % (0.0-5.0); NEUTROPHILS # 5.3 10^3/uL (1.5-8.5); NEUTROPHILS % 59.1 % (36.0-66.0); PLATELET COUNT, AUTOMATED 266 10^3/uL (150-450)
[2019-11-27 17:41] LABS: C REACTIVE PROTEIN QUANTITATIV 0.7 MG/DL (0.00-0.30); MAGNESIUM LEVEL 2.2 MG/DL (1.8-2.4)
[2019-11-27 17:45] LABS: ERYTHROCYTE SEDIMENTATION RATE 6 mm/hr (0-20)
--- NOTE | 2019-11-27 19:11 | REPVR ---
PROCEDURE INFORMATION: Exam: US Duplex Right Lower Extremity Veins, Limited Exam date and time: 11/27/2019 6:17 PM Age: 44 years old Clinical indication: Pain; Leg, upper; Right; Additional info: Pain to calf R/O dvt TECHNIQUE: Imaging protocol: Real-time Duplex ultrasound of the Right Lower Extremity with 2-D lyon scale, color Doppler flow and spectral waveform analysis with image documentation. Limited exam was focused on the right lower extremity veins. COMPARISON: No relevant prior studies available. FINDINGS: Right deep veins: Unremarkable. The common femoral, femoral and popliteal veins are patent without thrombus. Normal Doppler waveforms. Normal compressibility and/or augmentation response. Right superficial veins: Unremarkable. Saphenofemoral junction is patent without thrombus. Soft tissues: Unremarkable. IMPRESSION: No sonographic evidence of deep vein thrombosis. Electronically signed by: Juan C Raman On 11/27/2019 19:10:48 PM
[2019-11-27 19:44] VITALS: BP 127/83
== END 2019-11-27 19:52 | disposition home or self-care (01) ==
LOC: M ED 15:56
DX: R25.2 Cramp and spasm (principal); F17.210 Nicotine dependence, cigarettes, uncomplicated; Z79.899 Other long term (current) drug therapy

== ENCOUNTER → 2020-01-12 | Outpatient (CLI) | payer OTHER ==
[~2020-01-12] MED LIST changes: +IBUP-1022 PO
--- NOTE | 2020-01-12 16:09 | REPVR ---
PROCEDURE INFORMATION: Exam: XR Left Calcaneus Exam date and time: 01/12/2020 3:56 PM Age: 45 years old Clinical indication: Pain; Heel; Left; Additional info: Foot/heal pain TECHNIQUE: Imaging protocol: XR of the Left calcaneus. Views: 2 or more views. COMPARISON: No relevant prior studies available. FINDINGS: Bones/joints: Os trigonum is present. No acute fracture or dislocation. Soft tissues: Unremarkable. IMPRESSION: 1. No acute findings. 2. Os trigonum is present. Electronically signed by: Salvador Allred On 01/12/2020 16:08:44 PM
--- NOTE | 2020-01-12 16:11 | REPVR ---
PROCEDURE INFORMATION: Exam: XR Left Foot Complete Exam date and time: 01/12/2020 3:56 PM Age: 45 years old Clinical indication: Pain; Ankle; Left; Additional info: Foot/heal pain TECHNIQUE: Imaging protocol: XR Left foot. Views: 3 or more views. COMPARISON: No relevant prior studies available. FINDINGS: Bones/joints: Approximately 1.1 cm exophytic osseous lesion projecting off the dorsal aspect of the distal phalanx of the 1st digit. No acute fracture or dislocation. Os trigonum is present. Soft tissues: Unremarkable. IMPRESSION: 1. No acute osseous lesion or fracture. 2. Os trigonum is present. 3. Approximately 1.1 cm exophytic osseous lesion projecting off the dorsal aspect of the distal phalanx of the 1st digit, possible exostosis. Recommend further evaluation with foot CT. Electronically signed by: Salvador Allred On 01/12/2020 16:11:32 PM
== END ==
LOC: M RAD 15:26
PROVIDERS: ATTEND Physician Assistant
DX: M25.572 Pain in left ankle and joints of left foot (principal)

== ENCOUNTER → 2020-02-21 | Outpatient (CLI) | payer OTHER ==
[2020-02-21 10:47] LABS: HEMOGLOBIN 13.9 g/dl (12.0-15.5); MEAN CORPUSCULAR HEMOGLOBIN 28.7 pg (27.0-33.0); MEAN CORPUSCULAR HGB CONC 32.3 g/dl (32.0-36.5); MEAN CORPUSCULAR VOLUME 88.7 fl (80.0-96.0); PLATELET COUNT, AUTOMATED 281 10^3/uL (150-450); RED BLOOD COUNT 4.85 10^6/uL (4.00-5.40); WHITE BLOOD COUNT 9.8 10^3/uL (4.0-10.0)
[2020-02-21 11:14] LABS: ALBUMIN 3.6 GM/DL (3.2-5.2); ALT/SGPT 38 U/L (12-78); BILIRUBIN,DIRECT < 0.1 MG/DL (0.0-0.2); BILIRUBIN,TOTAL 0.3 MG/DL (0.2-1.0); BLOOD UREA NITROGEN 13 MG/DL (7-18); CALCIUM LEVEL 9.3 MG/DL (8.5-10.1); CARBON DIOXIDE LEVEL 27 MEQ/L (21-32); CHLORIDE LEVEL 106 MEQ/L (98-107); CREATININE FOR GFR 0.77 MG/DL (0.55-1.30); GLOMERULAR FILTRATION RATE > 60.0 (>58); GLUCOSE, FASTING 90 MG/DL (70-100); PHOSPHORUS LEVEL 3.5 MG/DL (2.5-4.9); POTASSIUM SERUM 3.8 MEQ/L (3.5-5.1); SODIUM LEVEL 140 MEQ/L (136-145); TOTAL PROTEIN 7.2 GM/DL (6.4-8.2)
== END ==
LOC: M LAB 09:30
PROVIDERS: ATTEND Podiatrist Foot & Ankle Surgery
DX: B35.1 Tinea unguium (principal); Z79.899 Other long term (current) drug therapy

== ENCOUNTER 2020-02-24 10:33 | Emergency (ER) | payer OTHER ==
[~2020-02-24] VITALS: Ht 149.9 cm; Wt 77.9 kg
[~2020-02-24 10:33] MED LIST changes: -IBUP-1022 PO
[2020-02-24] MEDS ORDERED: KETOROLAC 30 MG/ML 1ML VIAL IV ONE (11:15)
[2020-02-24] MEDS ORDERED: NS 1,000 ML IV ONE (11:15)
[2020-02-24 11:24] LABS: BASO # 0.1 10^3/uL (0.0-0.2); BASO % 0.5 % (0.0-1.0); EOS # 0.1 10^3/uL (0.0-0.5); EOS % 1.2 % (0.0-3.0); HEMATOCRIT 43.1 % (36.0-47.0); LYMPH # 2.7 10^3/uL (1.5-5.0); LYMPH % 27.6 % (24.0-44.0); MEAN CORPUSCULAR HEMOGLOBIN 28.3 pg (27.0-33.0); MEAN CORPUSCULAR HGB CONC 32.5 g/dl (32.0-36.5); MEAN CORPUSCULAR VOLUME 87.2 fl (80.0-96.0); MONO # 0.5 10^3/uL (0.0-0.8); MONO % 5.6 % (0.0-5.0); NEUTROPHILS # 6.3 10^3/uL (1.5-8.5); NEUTROPHILS % 64.9 % (36.0-66.0); PLATELET COUNT, AUTOMATED 284 10^3/uL (150-450); RED BLOOD COUNT 4.94 10^6/uL (4.00-5.40); WHITE BLOOD COUNT 9.7 10^3/uL (4.0-10.0)
[2020-02-24] MEDS ORDERED: ISOVUE-370 76% 100ML VIAL As Ordered ONE (11:44)
[2020-02-24 11:57] LABS: ALBUMIN 3.9 GM/DL (3.2-5.2); ALT/SGPT 36 U/L (12-78); BILIRUBIN,DIRECT < 0.1 MG/DL (0.0-0.2); BILIRUBIN,TOTAL 0.4 MG/DL (0.2-1.0); LIPASE 119 U/L (73-393); TOTAL PROTEIN 7.5 GM/DL (6.4-8.2)
--- NOTE | 2020-02-24 12:36 | REPVR ---
PROCEDURE INFORMATION: Exam: CT Abdomen And Pelvis With Contrast Exam date and time: 02/24/2020 11:54 AM Age: 45 years old Clinical indication: Abdominal pain; Additional info: Rlq pain R/O infectious process TECHNIQUE: Imaging protocol: Computed tomography of the abdomen and pelvis with intravenous contrast. Radiation optimization: All CT scans at this facility use at least one of these dose optimization techniques: automated exposure control; mA and/or kV adjustment per patient size (includes targeted exams where dose is matched to clinical indication); or iterative reconstruction. Contrast material: ISOVUE 370; Contrast volume: 100 ml; Contrast route: INTRAVENOUS (IV); COMPARISON: Abdomen, limited US 09/22/2019 9:49 AM FINDINGS: Lungs: The visualized lung bases demonstrate minor dependent atelectasis. Liver: The liver is fatty in density. It appears otherwise unremarkable. Gallbladder and bile ducts: The gallbladder is again absent. Pancreas: Normal. No ductal dilation. Spleen: Normal. No splenomegaly. Adrenals: Normal. No mass. Kidneys and ureters: Normal. No hydronephrosis. Stomach and bowel: The unopacified small bowel is not significantly distended to suggest obstruction. Medial to the proximal ascending colon is a fatty density focus measuring up to 1.8 cm with faint haziness of the surrounding fat (images 202:38, 201:83). This is suspicious for epiploic appendagitis. The large bowel is otherwise grossly unremarkable in appearance. Appendix: The appendix is not identified, but there are no inflammatory changes in its expected region. Intraperitoneal space: No free air or significant free fluid. Vasculature: The abdominal aorta is nonaneurysmal. Atherosclerotic vascular calcifications are noted. Lymph nodes: Unremarkable. No enlarged lymph nodes. Urinary bladder: Unremarkable as visualized. Reproductive: There has been hysterectomy. No gross adnexal abnormality is apparent, but ultrasound would be more appropriate in this regard. Bones/joints: Degenerative changes involve the spine and hips. Soft tissues: A very small fat containing umbilical hernia is present. IMPRESSION: 1. Suspect epiploic appendagitis along the proximal ascending colon as above. 2. Appendix not identified, without secondary signs of appendicitis. 3. Fatty liver. 4. Very small fat containing umbilical hernia. 5. Prior cholecystectomy and hysterectomy. Electronically signed by: Juan C Sosa On 02/24/2020 12:36:22 PM
[2020-02-24] MEDS ORDERED: IBUP-1022 PO (12:59)
[2020-02-24 13:14] VITALS: BP 135/87
--- NOTE | 2020-02-26 10:52 | ED PDOC ---
Post-Departure Follow-Up mariana moses faxed formal report of ct abd/p for fu Clint Cardona MD Feb 26, 2020 10:52
== END 2020-02-24 13:19 | disposition home or self-care (01) ==
LOC: M ED 10:33
DX: K65.9 Peritonitis, unspecified (principal); K58.8 Other irritable bowel syndrome; K76.0 Fatty (change of) liver, not elsewhere classified; Z90.710 Acquired absence of both cervix and uterus; Z90.49 Acquired absence of other specified parts of digestive tract; F17.200 Nicotine dependence, unspecified, uncomplicated; J30.2 Other seasonal allergic rhinitis
CPT/HCPCS: 74177; 80047; 80076; 81001; 83690; 85025; 96361; 96374; 99284; J1885; Q9967

== ENCOUNTER → 2020-06-28 | Outpatient (CLI) | payer SELFPAY ==
[~2020-06-28] MED LIST changes: +IBUP-1022 PO; +MONT10TA10 PO; -MONT10TA4 PO
== END ==
LOC: M LABSMTC 09:43
PROVIDERS: ATTEND Pediatrics
DX: Z20.822 Contact with and (suspected) exposure to COVID-19 (principal)

== ENCOUNTER 2020-08-06 11:51 | Outpatient (RCR) | payer OTHER | END 2020-08-07 | LOC: M OT 11:51 | DX: M25.532 Pain in left wrist (principal) ==

== ENCOUNTER 2020-08-18 13:57 | Emergency (ER) | payer OTHER ==
[~2020-08-18] VITALS: Ht 149.9 cm; Wt 79.2 kg
[2020-08-18 13:58] VITALS: BP 136/95
[2020-08-18] MEDS ORDERED: TERB250T12 (14:09)
--- NOTE | 2020-08-18 15:53 | REP ---
INDICATION: trauma to leg COMPARISON: None. TECHNIQUE: AP and lateral left lower leg. FINDINGS: There is no evidence of acute fracture, dislocation, or intrinsic bone disease. IMPRESSION: No fracture or dislocation. <Electronically signed by Eulalio Marley > 08/18/20 [id number]
== END 2020-08-18 16:13 | disposition home or self-care (01) ==
LOC: M ED 13:57
DX: S80.12XA Contusion of left lower leg, initial encounter (principal); X58.XXXA Exposure to other specified factors, initial encounter; Y92.512 Supermarket, store or market as the place of occurrence of the external cause; Y93.89 Activity, other specified; Y99.9 Unspecified external cause status; K21.9 Gastro-esophageal reflux disease without esophagitis; M54.9 Dorsalgia, unspecified; R10.31 Right lower quadrant pain; J30.2 Other seasonal allergic rhinitis; F17.200 Nicotine dependence, unspecified, uncomplicated; Z79.899 Other long term (current) drug therapy

== ENCOUNTER 2020-08-27 09:14 | Outpatient (RCR) | payer OTHER ==
[~2020-08-27 09:14] MED LIST changes: +TERB250T12
== END 2020-08-27 11:00 | disposition home or self-care (01) ==
LOC: M OT 09:14
DX: M25.532 Pain in left wrist (principal)

== ENCOUNTER 2020-09-05 14:31 | Outpatient (RCR) | payer OTHER | END 2020-09-06 | LOC: M PT 14:31 | PROVIDERS: ATTEND Physician Assistant | DX: M65.272 Calcific tendinitis, left ankle and foot (principal) ==

== ENCOUNTER 2020-09-27 08:47 | Outpatient (RCR) | payer OTHER ==
[~2020-09-27 08:47] MED LIST changes: +OMEP20TA2 PO; -OMEP20TA9 PO
== END 2020-10-07 ==
LOC: M PT 08:47
PROVIDERS: ATTEND Physician Assistant
DX: M65.272 Calcific tendinitis, left ankle and foot (principal)

== ENCOUNTER 2020-09-30 21:06 | Emergency (ER) | payer OTHER ==
[~2020-09-30] VITALS: Ht 149.9 cm; Wt 80.3 kg
[2020-09-30] MEDS ORDERED: ACETAMINOPHEN 500 MG TAB PO ONE (23:25)
--- NOTE | 2020-10-01 00:26 | REPVR ---
PROCEDURE INFORMATION: Exam: CT Head Without Contrast Exam date and time: 09/30/2020 11:18 PM Age: 45 years old Clinical indication: Other: Ear pain; Additional info: Headache, dizziness, R ear pain TECHNIQUE: Imaging protocol: Computed tomography of the head without contrast. Radiation optimization: All CT scans at this facility use at least one of these dose optimization techniques: automated exposure control; mA and/or kV adjustment per patient size (includes targeted exams where dose is matched to clinical indication); or iterative reconstruction. COMPARISON: No relevant prior studies available. FINDINGS: Brain: Normal. No hemorrhage. Unremarkable white matter. No mass effect. Cerebral ventricles: No ventriculomegaly. Bones/joints: Unremarkable. No acute fracture. Paranasal sinuses: Visualized sinuses are unremarkable. No fluid levels. Mastoid air cells: Visualized mastoid air cells are well aerated. Soft tissues: Unremarkable. IMPRESSION: No acute intracranial abnormality. Electronically signed by: Steven Hayes On 10/01/2020 00:25:31 AM
--- NOTE | 2020-10-01 00:46 | REPVR ---
PROCEDURE INFORMATION: Exam: CT Abdomen And Pelvis Without Contrast Exam date and time: 09/30/2020 11:18 PM Age: 45 years old Clinical indication: Abdominal pain; Flank; Right; Additional info: R flank pain, HX of kidney stones TECHNIQUE: Imaging protocol: Computed tomography of the abdomen and pelvis without contrast. Radiation optimization: All CT scans at this facility use at least one of these dose optimization techniques: automated exposure control; mA and/or kV adjustment per patient size (includes targeted exams where dose is matched to clinical indication); or iterative reconstruction. COMPARISON: CT ABD/PEL W/IV CONTRAST ONLY 02/24/2020 11:43 AM FINDINGS: Lungs: Linear atelectasis or scarring at the right base. Liver: Mild hepatomegaly. Gallbladder and bile ducts: Status post cholecystectomy. Pancreas: Normal. No ductal dilation. Spleen: Normal. No splenomegaly. Adrenal glands: Normal. No mass. Kidneys and ureters: Normal. No hydronephrosis. Stomach and bowel: Unremarkable. No obstruction. No mucosal thickening. Appendix: No evidence of appendicitis. Intraperitoneal space: Unremarkable. No free air. No significant fluid collection. Vasculature: Atherosclerotic disease of the abdominal aorta. Lymph nodes: Unremarkable. No enlarged lymph nodes. Urinary bladder: Unremarkable as visualized. Reproductive: Status post hysterectomy. Bones/joints: Mild multilevel degenerative disease of the lumbar spine. Stable appearance of a small limbus vertebra along the anterior superior endplate of L5. Soft tissues: Fat containing left flank spigelian hernia. Small fat containing umbilical hernia. IMPRESSION: No hydronephrosis or nephrolithiasis bilaterally. Mild hepatomegaly. Electronically signed by: Ilya Duron On 10/01/2020 00:46:06 AM
[2020-10-01 01:06] VITALS: BP 123/90
== END 2020-10-01 01:09 | disposition home or self-care (01) ==
LOC: M ED 21:06
DX: H92.01 Otalgia, right ear (principal); R51.9 Headache, unspecified; R10.9 Unspecified abdominal pain; K21.9 Gastro-esophageal reflux disease without esophagitis; K58.9 Irritable bowel syndrome, unspecified; J30.2 Other seasonal allergic rhinitis; Z79.899 Other long term (current) drug therapy; F17.210 Nicotine dependence, cigarettes, uncomplicated

== ENCOUNTER → 2021-03-21 | Outpatient (CLI) | payer OTHER ==
[~2021-03-21] MED LIST changes: +ERGO500029 PO; -TERB250T12; +TERB250T91; -VITA50005 PO
== END ==
LOC: M LABSMTC 12:00
PROVIDERS: ATTEND Pediatrics
DX: Z20.822 Contact with and (suspected) exposure to COVID-19 (principal)

== ENCOUNTER → 2021-06-17 | Outpatient (REF) ==
[~2021-06-17] MED LIST changes: -MONT10TA10 PO; +MONT10TA97 PO
== END ==
LOC: M PLAIMG 14:46
PROVIDERS: ATTEND Internal Medicine
DX: G56.01 Carpal tunnel syndrome, right upper limb (principal); M54.9 Dorsalgia, unspecified; M47.892 Other spondylosis, cervical region

== ENCOUNTER → 2021-09-16 | Outpatient (CLI) | payer OTHER ==
[2021-09-16 10:40] LABS: BASO % 0.4 % (0.0-1.0); EOS # 0.1 10^3/uL (0.0-0.5); EOS % 1.5 % (0.0-3.0); HEMATOCRIT 42.6 % (36.0-47.0); HEMOGLOBIN 13.9 g/dl (12.0-15.5); LYMPH # 2.7 10^3/uL (1.5-5.0); LYMPH % 33.6 % (24.0-44.0); MEAN CORPUSCULAR HEMOGLOBIN 28.2 pg (27.0-33.0); MEAN CORPUSCULAR HGB CONC 32.6 g/dl (32.0-36.5); MEAN CORPUSCULAR VOLUME 86.4 fl (80.0-96.0); MONO # 0.5 10^3/uL (0.0-0.8); MONO % 6.5 % (2.0-8.0); NEUTROPHILS # 4.7 10^3/uL (1.5-8.5); NEUTROPHILS % 57.8 % (36.0-66.0); PLATELET COUNT, AUTOMATED 276 10^3/uL (150-450); RED BLOOD COUNT 4.93 10^6/uL (4.00-5.40); WHITE BLOOD COUNT 8.1 10^3/uL (4.0-10.0)
[2021-09-16 10:58] LABS: HEMOGLOBIN A1c 5.5 %
[2021-09-16 11:06] LABS: BLOOD UREA NITROGEN 9 MG/DL (7-18); CALCIUM LEVEL 9.6 MG/DL (8.5-10.1); CARBON DIOXIDE LEVEL 28 MEQ/L (21-32); CHLORIDE LEVEL 108 MEQ/L (98-107); CHOLESTEROL LEVEL 302 MG/DL (<200); CHOLESTEROL RISK RATIO 7.743 (<5); GLOMERULAR FILTRATION RATE > 60.0 (>58); GLUCOSE, FASTING 85 MG/DL (70-100); HDL CHOLESTEROL 39 MG/DL (>40); LDL CHOLESTEROL 205 MG/DL (<100); NON-HDL-C 263 MG/DL; POTASSIUM SERUM 3.8 MEQ/L (3.5-5.1); SODIUM LEVEL 141 MEQ/L (136-145); TRIGLYCERIDES LEVEL 290 MG/DL (<150)
[2021-09-16 11:14] LABS: TOTAL 25(OH) VITAMIN D 21.1 NG/ML (30.0-100.0)
== END ==
LOC: M PLALAB 09:01
PROVIDERS: ATTEND Family Medicine
DX: E78.2 Mixed hyperlipidemia (principal); R73.01 Impaired fasting glucose; E55.9 Vitamin D deficiency, unspecified; K21.9 Gastro-esophageal reflux disease without esophagitis

== ENCOUNTER → 2021-12-16 | Outpatient (CLI) | payer OTHER | LOC: M PLAIMG 14:52 | PROVIDERS: ATTEND Orthopaedic Surgery | DX: M47.892 Other spondylosis, cervical region (principal); M50.222 Other cervical disc displacement at C5-C6 level; M50.223 Other cervical disc displacement at C6-C7 level; M46.02 Spinal enthesopathy, cervical region ==

== ENCOUNTER → 2022-01-27 | Outpatient (CLI) | payer OTHER ==
[2022-01-27 14:20] LABS: ALBUMIN 3.9 GM/DL (3.2-5.2); ALT/SGPT 29 U/L (12-78); BILIRUBIN,TOTAL 0.2 MG/DL (0.2-1.0); BLOOD UREA NITROGEN 15 MG/DL (7-18); CALCIUM LEVEL 9.9 MG/DL (8.5-10.1); CARBON DIOXIDE LEVEL 28 MEQ/L (21-32); CHLORIDE LEVEL 108 MEQ/L (98-107); CHOLESTEROL LEVEL 214 MG/DL (<200); CHOLESTEROL RISK RATIO 5.095 (<5); CREATININE FOR GFR 0.74 MG/DL (0.55-1.30); GLOMERULAR FILTRATION RATE > 60.0 (>58); GLUCOSE, FASTING 92 MG/DL (70-100); HDL CHOLESTEROL 42 MG/DL (>40); NON-HDL-C 172 MG/DL; SODIUM LEVEL 140 MEQ/L (136-145); TOTAL PROTEIN 7.3 GM/DL (6.4-8.2); TRIGLYCERIDES LEVEL 421 MG/DL (<150)
== END ==
LOC: M PLALAB 09:21
PROVIDERS: ATTEND Physician Assistant
DX: E78.2 Mixed hyperlipidemia (principal)

== ENCOUNTER → 2022-06-09 | Outpatient (RCR) | payer OTHER | LOC: M PT 05-27 07:58 | PROVIDERS: ATTEND Physician Assistant | DX: S93.402D Sprain of unspecified ligament of left ankle, subsequent encounter (principal) ==

== ENCOUNTER 2022-06-15 14:05 | Outpatient (RCR) | payer OTHER | END 2022-07-07 | LOC: M PT 14:05 | PROVIDERS: ATTEND Physician Assistant | DX: S93.402D Sprain of unspecified ligament of left ankle, subsequent encounter (principal) ==

== ENCOUNTER 2023-02-24 07:01 | Emergency (ER) | payer OTHER ==
[~2023-02-24] VITALS: Ht 149.9 cm; Wt 75.3 kg
[2023-02-24] MEDS ORDERED: ERGO500029 (07:09)
[2023-02-24] MEDS ORDERED: OMEP-173 (07:09)
[2023-02-24] MEDS ORDERED: IBUP-1720 (07:09)
[2023-02-24] MEDS ORDERED: ATOR1TAB21 (07:09)
[2023-02-24] MEDS ORDERED: ACET-683 PO (07:10)
[2023-02-24 07:44] LABS: HEMATOCRIT 43.5 % (36.0-47.0); HEMOGLOBIN 14.6 g/dl (12.0-15.5); MEAN CORPUSCULAR HEMOGLOBIN 28.9 pg (27.0-33.0); MEAN CORPUSCULAR HGB CONC 33.6 g/dl (32.0-36.5); PLATELET COUNT, AUTOMATED 279 10^3/uL (150-450); RED BLOOD COUNT 5.06 10^6/uL (4.00-5.40); WHITE BLOOD COUNT 11.4 10^3/uL (4.0-10.0)
[2023-02-24 08:03] LABS: BLOOD UREA NITROGEN 13 MG/DL (9-23); CALCIUM LEVEL 9.7 MG/DL (8.5-10.1); CARBON DIOXIDE LEVEL 29 MMOL/L (20-31); CHLORIDE LEVEL 106 MMOL/L (98-107); CREATININE FOR GFR 0.77 MG/DL (0.55-1.30); GLOMERULAR FILTRATION RATE > 60.0 (>58); GLUCOSE, FASTING 103 MG/DL (60-100); POTASSIUM SERUM 3.4 MMOL/L (3.5-5.1); SODIUM LEVEL 143 MMOL/L (136-145)
[2023-02-24] MEDS ORDERED: ACETAMINOPHEN 500 MG TAB PO ONE (08:40)
[2023-02-24] MEDS ORDERED: LIDOCAINE 5% (LIDODERM) PATCH TD ONE (08:40)
[2023-02-24] MEDS ORDERED: KETOROLAC 30 MG/ML 1ML VIAL IV ONE (08:40)
[2023-02-24 08:57] LABS: LIPASE 36 U/L (12-53)
[2023-02-24 09:00] LABS: ALBUMIN 4.1 G/DL (3.2-5.2); ALKALINE PHOSPHATASE 70 U/L (46-116); ALT/SGPT 29 U/L (7.0-40); AST/SGOT 22 U/L (<34); BILIRUBIN,DIRECT 0.2 MG/DL (<0.4); BILIRUBIN,TOTAL 0.6 MG/DL (0.3-1.2); TOTAL PROTEIN 7.4 G/DL (5.7-8.2)
[2023-02-24] MEDS ORDERED: diazePAM 10MG/2ML SYRINGE IV ONE (09:55)
[2023-02-24] MEDS ORDERED: LIDO5DIS41 TD (10:27)
[2023-02-24 11:04] VITALS: BP 133/83; TEMP 97.5; O2SAT 98
== END 2023-02-24 11:05 | disposition home or self-care (01) ==
LOC: M ED 07:01
DX: M54.50 Low back pain, unspecified (principal); E78.5 Hyperlipidemia, unspecified; F17.200 Nicotine dependence, unspecified, uncomplicated; K58.9 Irritable bowel syndrome, unspecified; Z87.442 Personal history of urinary calculi; Z79.1 Long term (current) use of non-steroidal anti-inflammatories (NSAID); Z79.02 Long term (current) use of antithrombotics/antiplatelets; Z79.899 Other long term (current) drug therapy
CPT/HCPCS: 74176; 80048; 80076; 81001; 83690; 85027; 96374; 99284; J1885

== ENCOUNTER → 2023-03-12 | Outpatient (CLI) | payer OTHER ==
[~2023-03-12] MED LIST changes: +ACET-683 PO; +ATOR1TAB21; +ERGO500029; +IBUP-1720; +LIDO5DIS41 TD; +OMEP-173
[2023-03-12 08:47] LABS: ALBUMIN 3.9 G/DL (3.2-5.2); ALKALINE PHOSPHATASE 68 U/L (46-116); ALT/SGPT 31 U/L (7.0-40); AST/SGOT 18 U/L (<34); BILIRUBIN,TOTAL 0.7 MG/DL (0.3-1.2); BLOOD UREA NITROGEN 10 MG/DL (9-23); CALCIUM LEVEL 9.6 MG/DL (8.5-10.1); CARBON DIOXIDE LEVEL 30 MMOL/L (20-31); CHLORIDE LEVEL 105 MMOL/L (98-107); CHOLESTEROL LEVEL 186 MG/DL (<200); CHOLESTEROL RISK RATIO 4.63 (<5); CREATININE FOR GFR 0.73 MG/DL (0.55-1.30); GLOMERULAR FILTRATION RATE > 60.0 (>58); GLUCOSE, FASTING 91 MG/DL (60-100); HDL CHOLESTEROL 40.1 MG/DL (>40); LDL CHOLESTEROL 111.3 MG/DL (<100); NON-HDL-C 145.9 MG/DL; POTASSIUM SERUM 3.8 MMOL/L (3.5-5.1); SODIUM LEVEL 141 MMOL/L (136-145); TOTAL PROTEIN 6.9 G/DL (5.7-8.2); TRIGLYCERIDES LEVEL 173 MG/DL (<150)
[2023-03-12 09:49] LABS: HEMOGLOBIN A1c 5.3 % (4.0-6.0)
== END ==
LOC: M RAD 07:15
PROVIDERS: ATTEND Family Medicine
DX: M54.50 Low back pain, unspecified (principal); E55.9 Vitamin D deficiency, unspecified; E78.2 Mixed hyperlipidemia; R73.01 Impaired fasting glucose; K76.0 Fatty (change of) liver, not elsewhere classified

== ENCOUNTER → 2023-05-27 | Outpatient (CLI) | payer OTHER ==
[~2023-05-27] MED LIST changes: +PROHANCE 279.3MG/ML 15ML VIAL As Ordered ONE
== END ==
LOC: M RAD 13:42
PROVIDERS: ATTEND Physician Assistant
DX: M79.642 Pain in left hand (principal); M79.89 Other specified soft tissue disorders; M25.332 Other instability, left wrist
CPT/HCPCS: 73220; 73221; A9576

== ENCOUNTER 2023-08-05 11:19 | Emergency (ER) | payer OTHER, MEDICAID ==
[~2023-08-05] VITALS: Ht 149.9 cm; Wt 77.6 kg
[~2023-08-05 11:19] MED LIST changes: -PROHANCE 279.3MG/ML 15ML VIAL As Ordered ONE
[2023-08-05 12:18] LABS: HEMATOCRIT 40.9 % (36.0-47.0); HEMOGLOBIN 13.8 g/dl (12.0-15.5); MEAN CORPUSCULAR HEMOGLOBIN 29.4 pg (27.0-33.0); MEAN CORPUSCULAR HGB CONC 33.7 g/dl (32.0-36.5); MEAN CORPUSCULAR VOLUME 87.2 fl (80.0-96.0); PLATELET COUNT, AUTOMATED 246 10^3/uL (150-450); RED BLOOD COUNT 4.69 10^6/uL (4.00-5.40); WHITE BLOOD COUNT 8.3 10^3/uL (4.0-10.0)
[2023-08-05 12:52] LABS: ALBUMIN 4.1 G/DL (3.2-5.2); ALKALINE PHOSPHATASE 67 U/L (46-116); ALT/SGPT 34 U/L (7.0-40); AST/SGOT 37 U/L (<34); BILIRUBIN,DIRECT < 0.1 MG/DL (<0.4); BILIRUBIN,TOTAL 0.4 MG/DL (0.3-1.2); BLOOD UREA NITROGEN 13 MG/DL (9-23); CALCIUM LEVEL 9.2 MG/DL (8.5-10.1); CARBON DIOXIDE LEVEL 29 MMOL/L (20-31); CHLORIDE LEVEL 107 MMOL/L (98-107); CREATININE FOR GFR 0.59 MG/DL (0.55-1.30); GLOMERULAR FILTRATION RATE > 60.0 (>58); GLUCOSE, FASTING 92 MG/DL (60-100); POTASSIUM SERUM 4.1 MMOL/L (3.5-5.1); SODIUM LEVEL 141 MMOL/L (136-145); TOTAL PROTEIN 7.1 G/DL (5.7-8.2); URIC ACID 2.9 MG/DL (3.1-7.8)
[2023-08-05] MEDS ORDERED: NAPR-885 PO (13:14)
[2023-08-05 13:27] VITALS: BP 138/67; TEMP 98; O2SAT 100
== END 2023-08-05 13:28 | disposition home or self-care (01) ==
LOC: M ED 12:17
DX: M65.4 Radial styloid tenosynovitis [de Quervain] (principal); K21.9 Gastro-esophageal reflux disease without esophagitis; E78.5 Hyperlipidemia, unspecified; J30.2 Other seasonal allergic rhinitis; F17.200 Nicotine dependence, unspecified, uncomplicated; Z79.899 Other long term (current) drug therapy

== ENCOUNTER → 2023-08-10 | Outpatient (CLI) | payer OTHER, MEDICAID ==
[~2023-08-10] MED LIST changes: +NAPR-885 PO
== END ==
LOC: M SOG 07:54
PROVIDERS: ATTEND Physician Assistant
DX: M25.532 Pain in left wrist (principal); Z53.9 Procedure and treatment not carried out, unspecified reason

== ENCOUNTER → 2023-08-18 | Outpatient (CLI) | payer OTHER | LOC: M SOG 09:51 | PROVIDERS: ATTEND Physician Assistant | DX: M25.511 Pain in right shoulder (principal) ==

== ENCOUNTER → 2023-08-25 | Outpatient (CLI) | payer OTHER | LOC: M WHC 10:56 | PROVIDERS: ATTEND Family Medicine | DX: M85.851 Other specified disorders of bone density and structure, right thigh (principal); M85.852 Other specified disorders of bone density and structure, left thigh ==

== ENCOUNTER → 2023-09-07 | Outpatient (CLI) | payer OTHER ==
[2023-09-07 12:43] LABS: BASO # 0.1 10^3/uL (0.0-0.2); BASO % 0.8 % (0.0-1.0); EOS # 0.2 10^3/uL (0.0-0.5); EOS % 1.9 % (0.0-3.0); HEMATOCRIT 41.9 % (36.0-47.0); MEAN CORPUSCULAR HEMOGLOBIN 29.7 pg (27.0-33.0); MEAN CORPUSCULAR HGB CONC 33.4 g/dl (32.0-36.5); MONO # 0.5 10^3/uL (0.0-0.8); MONO % 6.2 % (2.0-8.0); NEUTROPHILS # 4.2 10^3/uL (1.5-8.5); PLATELET COUNT, AUTOMATED 255 10^3/uL (150-450); RED BLOOD COUNT 4.71 10^6/uL (4.00-5.40); WHITE BLOOD COUNT 7.9 10^3/uL (4.0-10.0)
[2023-09-07 12:46] LABS: ALBUMIN 3.9 G/DL (3.2-5.2); ALKALINE PHOSPHATASE 76 U/L (46-116); ALT/SGPT 27 U/L (7.0-40); AST/SGOT 19 U/L (<34); BILIRUBIN,TOTAL 0.2 MG/DL (0.3-1.2); BLOOD UREA NITROGEN 15 MG/DL (9-23); CALCIUM LEVEL 9.5 MG/DL (8.5-10.1); CARBON DIOXIDE LEVEL 25 MMOL/L (20-31); CHLORIDE LEVEL 110 MMOL/L (98-107); CREATININE FOR GFR 0.73 MG/DL (0.55-1.30); GLOMERULAR FILTRATION RATE > 60.0 (>58); GLUCOSE, FASTING 103 MG/DL (60-100); PHOSPHORUS LEVEL 2.1 MG/DL (2.5-4.9); POTASSIUM SERUM 3.8 MMOL/L (3.5-5.1); SODIUM LEVEL 142 MMOL/L (136-145); TOTAL PROTEIN 6.7 G/DL (5.7-8.2)
[2023-09-07 12:50] LABS: THYROID STIMULATING HORMONE 1.507 uIU/ML (0.55-4.78); TOTAL 25(OH) VITAMIN D 36.3 NG/ML (20.0-100.0)
[2023-09-07 13:18] LABS: CALCIUM,RANDOM URINE 37.9 MG/DL; CREATININE,RANDOM URINE 295.6 MG/DL
== END ==
LOC: M PLALAB 10:33
PROVIDERS: ATTEND Family Medicine
DX: M81.0 Age-related osteoporosis without current pathological fracture (principal)

== ENCOUNTER → 2023-09-07 | Outpatient (CLI) | payer OTHER ==
[2023-09-07 12:42] LABS: BASO % 0.5 % (0.0-1.0); EOS # 0.1 10^3/uL (0.0-0.5); EOS % 1.7 % (0.0-3.0); LYMPH # 3.2 10^3/uL (1.5-5.0); LYMPH % 39.8 % (24.0-44.0); MEAN CORPUSCULAR HEMOGLOBIN 29.5 pg (27.0-33.0); MEAN CORPUSCULAR HGB CONC 33.3 g/dl (32.0-36.5); MEAN CORPUSCULAR VOLUME 88.4 fl (80.0-96.0); MONO # 0.5 10^3/uL (0.0-0.8); MONO % 6.3 % (2.0-8.0); NEUTROPHILS # 4.2 10^3/uL (1.5-8.5); NEUTROPHILS % 51.3 % (36.0-66.0); PLATELET COUNT, AUTOMATED 252 10^3/uL (150-450); RED BLOOD COUNT 4.75 10^6/uL (4.00-5.40); WHITE BLOOD COUNT 8.1 10^3/uL (4.0-10.0)
[2023-09-07 12:44] LABS: C REACTIVE PROTEIN QUANTITATIV < 0.40 MG/DL (<1.0)
[2023-09-07 12:46] LABS: ALBUMIN 3.6 G/DL (3.2-5.2); ALKALINE PHOSPHATASE 70 U/L (46-116); ALT/SGPT 25 U/L (7.0-40); AST/SGOT 17 U/L (<34); BILIRUBIN,TOTAL 0.2 MG/DL (0.3-1.2); BLOOD UREA NITROGEN 16 MG/DL (9-23); CALCIUM LEVEL 9.1 MG/DL (8.5-10.1); CARBON DIOXIDE LEVEL 26 MMOL/L (20-31); CHLORIDE LEVEL 111 MMOL/L (98-107); CREATININE FOR GFR 0.74 MG/DL (0.55-1.30); GLOMERULAR FILTRATION RATE > 60.0 (>58); GLUCOSE, FASTING 100 MG/DL (60-100); POTASSIUM SERUM 3.9 MMOL/L (3.5-5.1); SODIUM LEVEL 144 MMOL/L (136-145); TOTAL PROTEIN 6.6 G/DL (5.7-8.2)
[2023-09-07 12:48] LABS: RHEUMATOID FACTOR QUANT 5.3 IU/ML (<14)
[2023-09-07 12:49] LABS: ERYTHROCYTE SEDIMENTATION RATE 9 mm/hr (0-20)
[2023-09-07 12:50] LABS: URIC ACID 3.3 MG/DL (3.1-7.8)
[2023-09-08 11:16] LABS: PTH INTACT 49.8 PG/ML (18.5-88.0)
== END ==
LOC: M PLALAB 10:36
PROVIDERS: ATTEND Physician Assistant
DX: M25.332 Other instability, left wrist (principal); M81.0 Age-related osteoporosis without current pathological fracture

== ENCOUNTER → 2023-09-08 | Outpatient (CLI) | payer OTHER | LOC: M SOG 10:06 | PROVIDERS: ATTEND Physician Assistant | DX: M25.532 Pain in left wrist (principal); M85.442 Solitary bone cyst, left hand ==

== ENCOUNTER 2023-10-27 06:24 | Day surgery (SDC) | payer OTHER ==
[~2023-10-27] VITALS: Ht 147.3 cm; Wt 77.1 kg
[~2023-10-27 06:24] MED LIST changes: -ATOR1TAB21; +LIDOCAINE W/EPINEPHRINE 1% 20ML VIAL XX ONE; -OMEP-173; +OMEP-173 PO; +SODIUM BICARBONATE 8.4% INJ 50MEQ 50ML VIAL XX ONE
[2023-10-27] MEDS ORDERED: LR 1,000 ML IV SCH (06:55)
[2023-10-27] MEDS ORDERED: BACITRACIN OINTMENT 30GM TUBE As Ordered ONE (07:14)
[2023-10-27 08:37] VITALS: BP 122/72; TEMP 96.7; O2SAT 98
== END 2023-10-27 08:50 | disposition home or self-care (01) ==
LOC: M SDC 06:24
PROVIDERS: ATTEND Orthopaedic Surgery Hand Surgery
DX: M65.4 Radial styloid tenosynovitis [de Quervain] (principal)
CPT/HCPCS: 25000; J0665

== ENCOUNTER → 2024-03-16 | Outpatient (CLI) | payer OTHER ==
[~2024-03-16] MED LIST changes: -LIDOCAINE W/EPINEPHRINE 1% 20ML VIAL XX ONE; -SODIUM BICARBONATE 8.4% INJ 50MEQ 50ML VIAL XX ONE
[2024-03-16 09:10] LABS: ALBUMIN 3.4 G/DL (3.2-5.2); ALKALINE PHOSPHATASE 77 U/L (35-104); ALT/SGPT 49 U/L (7.0-40); AST/SGOT 39 U/L (<34); BILIRUBIN,TOTAL 0.3 MG/DL (0.3-1.2); BLOOD UREA NITROGEN 14 MG/DL (9-23); CALCIUM LEVEL 9.6 MG/DL (8.5-10.1); CARBON DIOXIDE LEVEL 28 MMOL/L (20-31); CHLORIDE LEVEL 110 MMOL/L (98-107); CHOLESTEROL LEVEL 187 MG/DL (<200); CHOLESTEROL RISK RATIO 4.37 (<5); CREATININE FOR GFR 0.73 MG/DL (0.55-1.30); GLOMERULAR FILTRATION RATE > 60.0 (>58); GLUCOSE, FASTING 97 MG/DL (60-100); HDL CHOLESTEROL 42.7 MG/DL (>40); LDL CHOLESTEROL 92.9 MG/DL (<100); NON-HDL-C 144.3 MG/DL; POTASSIUM SERUM 3.7 MMOL/L (3.5-5.1); SODIUM LEVEL 144 MMOL/L (136-145); TOTAL PROTEIN 6.7 G/DL (5.7-8.2); TRIGLYCERIDES LEVEL 257 MG/DL (<150)
[2024-03-16 09:12] LABS: TOTAL 25(OH) VITAMIN D 32.6 NG/ML (20.0-100.0)
== END ==
LOC: M LAB 07:54
PROVIDERS: ATTEND Family Medicine
DX: E78.2 Mixed hyperlipidemia (principal); M81.0 Age-related osteoporosis without current pathological fracture; M54.50 Low back pain, unspecified

== ENCOUNTER → 2024-04-03 | Outpatient (CLI) | payer OTHER ==
[2024-04-03 08:32] LABS: BASO # 0.1 10^3/uL (0.0-0.2); BASO % 0.7 % (0.0-1.0); EOS # 0.1 10^3/uL (0.0-0.5); EOS % 1.3 % (0.0-3.0); HEMATOCRIT 40.8 % (36.0-47.0); HEMOGLOBIN 13.1 g/dl (12.0-15.5); LYMPH # 3.2 10^3/uL (1.5-5.0); LYMPH % 34.6 % (24.0-44.0); MEAN CORPUSCULAR HEMOGLOBIN 28.1 pg (27.0-33.0); MEAN CORPUSCULAR HGB CONC 32.1 g/dl (32.0-36.5); MEAN CORPUSCULAR VOLUME 87.4 fl (80.0-96.0); MONO # 0.7 10^3/uL (0.0-0.8); MONO % 7.2 % (2.0-8.0); NEUTROPHILS # 5.1 10^3/uL (1.5-8.5); NEUTROPHILS % 55.7 % (36.0-66.0); PLATELET COUNT, AUTOMATED 270 10^3/uL (150-450); RED BLOOD COUNT 4.67 10^6/uL (4.00-5.40); WHITE BLOOD COUNT 9.2 10^3/uL (4.0-10.0)
[2024-04-03 08:37] LABS: ERYTHROCYTE SEDIMENTATION RATE 15 mm/hr (0-20)
[2024-04-03 09:02] LABS: URIC ACID 4.3 MG/DL (3.1-7.8)
[2024-04-03 09:05] LABS: RHEUMATOID FACTOR QUANT 6.1 IU/ML (<14)
[2024-04-04 17:13] LABS: ANA SCREEN, IFA NEGATIVE (NEGATIVE)
[2024-04-05 02:04] LABS: CYCLIC CITRULLINATED PEPTIDE < 16 UNITS (<20)
== END ==
LOC: M LAB 07:51
PROVIDERS: ATTEND Family Medicine
DX: Z15.89 Genetic susceptibility to other disease (principal)

== ENCOUNTER 2024-07-15 10:31 | Emergency (ER) | payer OTHER ==
[~2024-07-15 10:31] MED LIST changes: +OMEP-611 PO; -OMEP20TA2 PO
[2024-07-15 11:12] LABS: BASO # 0.1 10^3/uL (0.0-0.2); BASO % 0.6 % (0.0-1.0); EOS # 0.1 10^3/uL (0.0-0.5); EOS % 1.4 % (0.0-3.0); HEMATOCRIT 40.7 % (36.0-47.0); HEMOGLOBIN 13.6 g/dl (12.0-15.5); LYMPH # 2.8 10^3/uL (1.5-5.0); LYMPH % 30.7 % (24.0-44.0); MEAN CORPUSCULAR HEMOGLOBIN 29.1 pg (27.0-33.0); MEAN CORPUSCULAR HGB CONC 33.4 g/dl (32.0-36.5); MONO # 0.6 10^3/uL (0.0-0.8); MONO % 6.2 % (2.0-8.0); NEUTROPHILS # 5.5 10^3/uL (1.5-8.5); NEUTROPHILS % 60.8 % (36.0-66.0); PLATELET COUNT, AUTOMATED 270 10^3/uL (150-450); RED BLOOD COUNT 4.68 10^6/uL (4.00-5.40)
[2024-07-15 11:37] LABS: CK-MB VALUE MASS < 1.0 NG/ML (<3.6)
[2024-07-15 11:38] LABS: CPK CREATINE PHOSPHOKINASE 129 U/L (34-145); MB/CK RELATIVE INDEX 0.77 (< OR =4)
[2024-07-15] MEDS ORDERED: ISOVUE-370 76% 100ML VIAL As Ordered ONE (11:38)
[2024-07-15 11:39] LABS: BLOOD UREA NITROGEN 11 MG/DL (9-23); CALCIUM LEVEL 9.3 MG/DL (8.5-10.1); CARBON DIOXIDE LEVEL 24 MMOL/L (20-31); CHLORIDE LEVEL 107 MMOL/L (98-107); CREATININE FOR GFR 0.73 MG/DL (0.55-1.30); GLOMERULAR FILTRATION RATE > 60.0 (>58); GLUCOSE, FASTING 120 MG/DL (60-100); POTASSIUM SERUM 3.7 MMOL/L (3.5-5.1); SODIUM LEVEL 143 MMOL/L (136-145)
[2024-07-15] MEDS: ASPIRIN 325 MG TAB PO ONE (12:04)
[2024-07-15 12:53] LABS: CK-MB VALUE MASS < 1.0 NG/ML (<3.6)
[2024-07-15 12:54] LABS: CPK CREATINE PHOSPHOKINASE 113 U/L (34-145); MB/CK RELATIVE INDEX 0.88 (< OR =4)
[2024-07-15 14:03] VITALS: BP 123/82; TEMP 97.4; O2SAT 99
== END 2024-07-15 14:04 | disposition home or self-care (01) ==
LOC: M ED 10:31
DX: M94.0 Chondrocostal junction syndrome [Tietze] (principal); R73.09 Other abnormal glucose; I10 Essential (primary) hypertension; E78.5 Hyperlipidemia, unspecified; K21.9 Gastro-esophageal reflux disease without esophagitis; J30.2 Other seasonal allergic rhinitis; F17.200 Nicotine dependence, unspecified, uncomplicated; Z79.899 Other long term (current) drug therapy
CPT/HCPCS: 71045; 71275; 80048; 82550; 82553; 84484; 85025; 93005; 93041; 94760; 99285; Q9967

== ENCOUNTER → 2024-07-21 | Outpatient (CLI) | payer OTHER ==
[2024-07-21 15:02] LABS: ALBUMIN 3.9 G/DL (3.2-5.2); ALKALINE PHOSPHATASE 81 U/L (35-104); ALT/SGPT 28 U/L (7.0-40); AST/SGOT 19 U/L (<34); BILIRUBIN,TOTAL 0.2 MG/DL (0.3-1.2); BLOOD UREA NITROGEN 15 MG/DL (9-23); CALCIUM LEVEL 9.8 MG/DL (8.5-10.1); CARBON DIOXIDE LEVEL 30 MMOL/L (20-31); CHLORIDE LEVEL 105 MMOL/L (98-107); CHOLESTEROL LEVEL 187 MG/DL (<200); CHOLESTEROL RISK RATIO 4.16 (<5); CREATININE FOR GFR 0.77 MG/DL (0.55-1.30); GLOMERULAR FILTRATION RATE > 60.0 (>58); GLUCOSE, FASTING 94 MG/DL (60-100); HDL CHOLESTEROL 44.9 MG/DL (>40); LDL CHOLESTEROL 112.5 MG/DL (<100); NON-HDL-C 142.1 MG/DL; POTASSIUM SERUM 4.8 MMOL/L (3.5-5.1); SODIUM LEVEL 144 MMOL/L (136-145); TOTAL PROTEIN 7.5 G/DL (5.7-8.2); TRIGLYCERIDES LEVEL 148 MG/DL (<150)
[2024-07-21 15:58] LABS: HEMOGLOBIN A1c 5.6 % (4.0-6.0)
== END ==
LOC: M PLALAB 08:52
PROVIDERS: ATTEND Family Medicine
DX: R73.01 Impaired fasting glucose (principal); M81.0 Age-related osteoporosis without current pathological fracture; E78.2 Mixed hyperlipidemia

== ENCOUNTER → 2024-07-21 | Outpatient (CLI) | payer OTHER | LOC: M WHC 08:02 | PROVIDERS: ATTEND Family Medicine | DX: Z12.31 Encounter for screening mammogram for malignant neoplasm of breast (principal) ==

== ENCOUNTER → 2024-12-18 | Outpatient (CLI) | payer OTHER ==
[~2024-12-18] MED LIST changes: +LIDO1ADH93 TD; -LIDO5DIS41 TD; +VITA100093 PO
== END ==
LOC: M PLAIMG 13:36
PROVIDERS: ATTEND Internal Medicine
DX: M54.9 Dorsalgia, unspecified (principal); M46.1 Sacroiliitis, not elsewhere classified

== ENCOUNTER 2024-12-27 07:47 | Day surgery (SDC) | payer OTHER ==
[~2024-12-27] VITALS: Ht 149.9 cm; Wt 78.8 kg
[2024-12-27] MEDS ORDERED: LIDOCAINE 2% 100 MG/5 ML SDV (FOR ANES.) As Ordered ONE (08:49)
[2024-12-27 09:12] VITALS: TEMP 97.8
[2024-12-27 09:35] VITALS: BP 161/99; O2SAT 99
== END 2024-12-27 10:20 | disposition home or self-care (01) ==
LOC: M OPP 07:47
PROVIDERS: ATTEND Surgery
DX: D12.6 Benign neoplasm of colon, unspecified (principal); Z86.0100 Personal history of colon polyps, unspecified; Z91.048 Other nonmedicinal substance allergy status; Z79.899 Other long term (current) drug therapy; F17.210 Nicotine dependence, cigarettes, uncomplicated

== ENCOUNTER → 2025-01-01 | Outpatient (CLI) | payer OTHER ==
[~2025-01-01] MED LIST changes: -IBUP-1022 PO; +IBUP600T42 PO; +PROHANCE 279.3MG/ML 15ML VIAL ONE
== END ==
LOC: M PLAIMG 09:42
DX: R13.10 Dysphagia, unspecified (principal); Z15.09 Genetic susceptibility to other malignant neoplasm; Z80.0 Family history of malignant neoplasm of digestive organs; R19.5 Other fecal abnormalities; Z90.49 Acquired absence of other specified parts of digestive tract; K76.0 Fatty (change of) liver, not elsewhere classified
CPT/HCPCS: 74183; A9576

== ENCOUNTER → 2025-01-26 | Outpatient (CLI) | payer OTHER ==
[~2025-01-26] MED LIST changes: +MELO7.5T35 PO; -PROHANCE 279.3MG/ML 15ML VIAL ONE
[2025-01-26 20:07] LABS: CALCIUM LEVEL 10.1 MG/DL (8.5-10.1); CARBON DIOXIDE LEVEL 27 MMOL/L (20-31); CHLORIDE LEVEL 105 MMOL/L (98-107); CREATININE FOR GFR 0.72 MG/DL (0.55-1.30); GLOMERULAR FILTRATION RATE > 90.0 (>58); POTASSIUM SERUM 3.7 MMOL/L (3.5-5.1); SODIUM LEVEL 142 MMOL/L (136-145)
== END ==
LOC: M LAB 17:53
PROVIDERS: ATTEND Nurse Practitioner Family
DX: M81.0 Age-related osteoporosis without current pathological fracture (principal)

== ENCOUNTER 2025-02-02 08:39 | Day surgery (SDC) | payer OTHER ==
[~2025-02-02] VITALS: Ht 149.9 cm; Wt 81.1 kg
[2025-02-02] MEDS ORDERED: LR 1,000 ML IV SCH ×2 (09:30→13:30)
[2025-02-02] MEDS: CelecoXIB 400 MG CAP PO ONE (10:00)
[2025-02-02] MEDS: metroNIDAZOLE 500 MG in IV 1 EA IV ONE (10:00)
[2025-02-02] MEDS ORDERED: MIDAZOLAM INJ 2 MG/2 ML VIAL As Ordered ONE (11:45)
[2025-02-02] MEDS ORDERED: dexAMETHasone 4 MG/ML 1 ML VIAL As Ordered ONE (11:45)
[2025-02-02] MEDS ORDERED: LIDOCAINE 2% 100 MG/5 ML SDV (FOR ANES.) As Ordered ONE (11:45)
[2025-02-02] MEDS ORDERED: ONDANSETRON 4MG 2ML VIAL As Ordered ONE (11:50)
[2025-02-02] MEDS ORDERED: KETOROLAC 30 MG/ML 1 ML VIAL As Ordered ONE (11:51)
[2025-02-02] MEDS: ceFAZolin SOD 2 GM IV ONCE IV ONE (12:40)
[2025-02-02] MEDS: LIDOCAINE W/EPINEPHrine 1% 20 ML VIAL As Ordered ONE (13:10)
[2025-02-02] MEDS ORDERED: HYDROMORPHONE HCL 0.5 MG/0.5 ML SYRINGE IV PRN (13:30)
[2025-02-02] MEDS ORDERED: SUGAMMADEX SODIUM 200 MG/2 ML VIAL As Ordered ONE (13:54)
[2025-02-02] MEDS ORDERED: MEPERIDINE 25 MG/ML 1 ML VIAL IV PRN (14:00)
[2025-02-02] MEDS: ONDANSETRON 4MG 2ML VIAL IV PRN (14:08)
[2025-02-02 15:50] VITALS: BP 121/74; TEMP 94.8; O2SAT 98
== END 2025-02-02 16:30 | disposition home or self-care (01) ==
LOC: M SDC 08:39
PROVIDERS: ATTEND Surgery
DX: A63.0 Anogenital (venereal) warts (principal); F17.210 Nicotine dependence, cigarettes, uncomplicated; E78.5 Hyperlipidemia, unspecified; K58.8 Other irritable bowel syndrome; K21.9 Gastro-esophageal reflux disease without esophagitis; F41.9 Anxiety disorder, unspecified; J30.2 Other seasonal allergic rhinitis; Z79.899 Other long term (current) drug therapy
CPT/HCPCS: 46922; 88305; J0688; J1100; J1836; J1885; J2250; J2405; J3010